=== PATIENT | female | born 1950 | race Caucasian/White ===

== ENCOUNTER 2020-06-16 08:07 | Outpatient (CLI) | payer MEDICARE, OTHER, SELFPAY ==
--- NOTE | 2020-06-16 08:30 | FL_ITS ---
NOTE: Report was unsigned for reason: Order was edited. Original Signature date and time was: 06/16/20 0937 WS: [id number] EXAM: SINGLE COLUMN UPPER GASTROINTESTINAL SERIES DATE OF EXAMINATION: 06/16/2020, 0852 hours COMPARISON: None. HISTORY: Patient is 70 years old with prior gastric sleeve procedure 2-3 years ago. Complaining of dysphasia. Pills are getting stuck. FLUOROSCOPY TIME: 2.6 minutes FINDINGS: Single column upper gastrointestinal series was performed. There is utilization of both sides of the piriform sinuses. Esophageal mucosa is smooth. Esophageal peristalsis is normal. The GE junction is normal in appearance. There is a small retrocardiac hiatal hernia demonstrated. Post surgical changes of a gastric sleeve procedure are seen. No findings of extravasation of oral contrast demonstrated. Contrast extends through the reduced size of the stomach lumen and empties into the small bowel. The stomach is otherwise is normal in appearance. There is a normal appearance to the pyloric canal, duodenal bulb, C-loop and midgut rotation. Proximal small bowel mucosa is normal in appearance. [facility] upper [facility] w air[facility] [id number] IMPRESSION: Prior gastric sleeve procedure. Small retrocardiac hiatal hernia noted. Reduced size of the stomach noted. Evaluation of the stomach otherwise normal without evidence of extravasation or definite ulcer. Contrast extends into the small paty wel without evidence of obstruction. Normal appearance to the proximal small paty wel demonstrated.
== END 2020-06-16 08:08 | disposition home or self-care (01) ==
LOC: RADWPI 08:10
PROVIDERS: Family Provider Nurse Practitioner Family; PCP Nurse Practitioner Family; Visit Provider Surgery
DX: R13.10 Dysphagia, unspecified (principal); Z98.84 Bariatric surgery status; K44.9 Diaphragmatic hernia without obstruction or gangrene
CPT/HCPCS: 74240; 74246

== ENCOUNTER 2020-06-23 10:58 | Outpatient (CLI) | payer MEDICARE, OTHER, SELFPAY ==
[2020-06-23 11:25] LABS: Basophils % 0.4 %; Eosinophils # 0.2 10^3/uL (0.0-0.8); Eosinophils % 2.1 %; Hematocrit 43.4 % (37.0-47.0); Hemoglobin 13.7 g/dL (11.5-15.3); Lymphocytes # 1.7 10^3/uL (0.8-4.8); Lymphocytes % 23.5 %; Mean Corpuscular HGB Conc 31.6 g/dL (30.0-36.0); Mean Corpuscular Hemoglobin 31.4 pg (28.0-34.0); Mean Corpuscular Volume 99.3 fL (81-99); Mean Platelet Volume 10.9 fL (7.4-10.4); Monocytes # 0.5 10^3/uL (0.2-0.9); Neutrophils # 4.76 10^3/uL (1.8-7.7); Neutrophils % 66.7 %; Nucleated Red Blood Cells % 0 %; Platelet Count 227 10^3/cmm (130-400); Red Blood Count 4.37 10^6/uL (4.1-5.3); Red Cell Distribution Width 12.6 % (12.1-15.1); White Blood Count 7.1 10^3/uL (4.0-10.0)
[2020-06-23 11:35] LABS: INR 0.86 (0.8-1.2)
[2020-06-23 12:06] LABS: Alanine Aminotransferase 24 U/L (0-33); Albumin Level 4.1 g/dL (3.5-5.2); Alkaline Phosphatase 39 IU/L (35-105); Anion Gap 14.4 (5-19); Aspartate Amino Transferase 21 U/L (0-32); Blood Urea Nitrogen 15 mg/dL (8-23); Calcium 9.1 mg/dL (8.5-10.5); Carbon Dioxide 27 mmol/L (22-29); Chloride 103 mmol/L (98-107); Chol HDL Ratio 3.68 mg/dL (0.0-4.40); Cholesterol 228 mg/dL (0-200); Ferritin 333 ng/mL (15-150); Folate Level 15.6 ng/mL (4.8-37.3); Globulin 3.2 g/dL (1.3-4.6); Glomerular Filtration Rate 99.4 mL/min (90-130); Glucose 90 mg/dL (65-115); HDL Cholesterol 62 mg/dL (60-100); Iron 117 ug/dL (37-145); LDL Cholesterol Calculated 116 mg/dL (50-129); LDL HDL Ratio 1.87 RATIO (0.00-3.22); Magnesium 2.2 mg/dL (1.7-2.3); Osmolality Calculated 286 mOsm/kg (285-295); Percent Saturation 48.7 % (20-50); Phosphorus 3.7 mg/dL (2.5-4.5); Potassium 4.4 mmol/L (3.5-5.1); Sodium 140 mmol/L (136-145); Total Bilirubin 0.3 mg/dL (0.15-1.2); Total Iron Binding Capacity 240 mcg/dl; Total Protein 7.3 g/dL (6.6-8.7); Triglycerides 249 mg/dL (0-150); Unsaturated Iron Binding 123 ug/dL (112-347); Vitamin B12 813 pg/mL (232-1245)
[2020-06-23 12:12] LABS: Calcium 9.5 mg/dL (8.5-10.5); Parathyroid Hormone 51.4 pg/mL (15-65)
[2020-06-23 14:13] LABS: Estmated Average Glucose 123; Hemoglobin A1C 5.9 % (4.0-6.0)
== END 2020-06-23 10:59 | disposition home or self-care (01) ==
LOC: LAB 11:04
PROVIDERS: PCP Nurse Practitioner Family; Visit Provider Surgery
DX: D64.9 Anemia, unspecified (principal); E66.9 Obesity, unspecified; E11.9 Type 2 diabetes mellitus without complications
CPT/HCPCS: 80053; 80061; 82248; 82310; 82607; 82728; 82746; 83036; 83540; 83550; 83735; 83970; 84100; 84443; 85025; 85610

== ENCOUNTER 2020-06-30 15:40 | Outpatient (CLI) | payer MEDICARE, OTHER, SELFPAY | END 2020-06-30 15:41 | disposition home or self-care (01) | LOC: SPT 15:41 | PROVIDERS: PCP Nurse Practitioner Family; Visit Provider Podiatrist Foot & Ankle Surgery | DX: Z46.89 Encounter for fitting and adjustment of other specified devices (principal); M72.2 Plantar fascial fibromatosis | CPT/HCPCS: 97760; L3030 ==

== ENCOUNTER → 2020-07-15 07:51 | Outpatient (BNVA) | payer MEDICARE, OTHER, SELFPAY | PROVIDERS: PCP Nurse Practitioner Family; Visit Provider Surgery | DX: Z20.828 Contact with and (suspected) exposure to other viral communicable diseases (principal) | CPT/HCPCS: 87635 ==

== ENCOUNTER 2020-07-20 07:19 | Day surgery (SDC) | payer MEDICARE, OTHER, SELFPAY ==
[2020-07-18 12:45] VITALS: BMI 34.5
[2020-07-20] MEDS: sodium chloride 0.9% 1,000 ML 30 ML IV ×2 (07:45)
[2020-07-20 07:46] VITALS: BP 125/72; PULSE 58; RESP 18; TEMP 36.1; O2SAT 98
--- NOTE | 2020-07-20 08:04 | ANES.PREANE2 ---
Pre-Anesthetic Assessment Pre-Anesthetic Assessment: Height/Weight: Height 1.6 m Weight 88.451 kg Temp Pulse Resp BP Pulse Ox 97 F L 58 L 18 125/72 98 07/20/20 07:46 07/20/20 07:46 07/20/20 07:46 07/20/20 07:46 07/20/20 07:46 Preop Diagnosis: Difficulty in swallowing and screening colonoscopy Proposed Procedure: Operation Date: 07/20/20 09:00 Proposed Procedures p EGD/colon 23449 47225 R13.10 Z12.11(Not Applicable) - Mookie Rollins MD s Colonoscopy(Not Applicable) - Mookie Rollins MD Familial anesthetic complications: Vagal response/ low bp after anethesia a couple of times Was Beta Santosh taken within 24 hours: Yes Last intake: Intake Last Liquid Date 07/19/20 Last Liquid Time 23:00 Last Solid Date 07/19/20 Last Solid Time 23:00 Social: Social History: No alcohol and No tobacco Exam: Pre-Anes Outpt Exam: alert, oriented x 3, clear to auscultation bilaterally and regular rate & rhythm Airway: Cervical ROM: WNL MP: 3 Dentition: Full Pulmonary: Pulmonary: Sleep apnea CV/HEM: CV/HEM: HTN GI: GI: GERD Neuropsych: Neuropsych: Depression Anesthetic Plan: ASA status: 2 Anesthesia: MAC Risk of > 500 ml blood loss (7ml/kg in children): No PFSH Anesthesia PFSH: Medical History Anxiety Bilateral foot pain Hiatal hernia Hypercholesteremia Hypertension Surgical History H/O carpal tunnel repair bilateral H/O colonoscopy 10-12 yrs H/O esophagogastroduodenoscopy 5 years ago with gastric sleeve H/O: hysterectomy History of tonsillectomy and adenoidectomy Hx of cholecystectomy S/P laparoscopic sleeve gastrectomy Family History Mother Cancer skin cancer Other Bipolar disorder CAD (coronary artery disease) Family history of thyroid problem Hypertension Osteoarthritis Denies family history of Anesthesia complication Bleeding disorder Social History Smoking and tobacco status: never smoked Alcohol intake: never Lives independently: Yes Marital status: Single Current occupational status: employed History of recent travel: Yes ([place], [place]) Out of state: Yes Data Anesthesia Cardiac Studies: No Data to Display
--- NOTE | 2020-07-20 09:13 | W.PM.OPSUD ---
Surgery/Procedure H&P Update DATE OF PROCEDURE: July 20, 2020 DATE H&P PERFORMED: 06/30/20 H&P UPDATE INFORMATION: I have reviewed H&P completed within last 30 days, I have examined patient prior to procedure and No changes to prior documentation PREOP DIAGNOSIS: Difficulty in swallowing and screening colonoscopy PRIMARY INDICATION FOR PROCEDURE: The same PLANNED PROCEDURE: Operation Date: 07/20/20 09:00 Proposed Procedures p EGD/colon 57719 72406 R13.10 Z12.11(Not Applicable) - Mookie Rollins MD s Colonoscopy(Not Applicable) - Mookie Rollins MD
[2020-07-20 10:09] VITALS: BP 107/61; PULSE 57; RESP 18; TEMP 36.1; O2SAT 96
--- NOTE | 2020-07-20 10:12 | ANE.PACU2 ---
Inpatient post-anesthesia follow up: Airway intact: Yes Vital signs: Temperature 97 F Pulse Rate 58 Respiratory Rate 18 Blood Pressure 125/72 Pulse Oximetry 98 Oxygen Delivery Me thod Room Air Oxygen Flow Rate Fraction of Inspir ed Oxygen Hydration adequate: Yes Nausea and vomiting: No Pain level: 1 Mental status: Baseline
[2020-07-20 10:24] VITALS: BP 115/65; PULSE 58; RESP 18; O2SAT 98
[2020-07-21 06:06] LABS: H. Pylori / CLO Test Negative
== END 2020-07-20 10:35 | disposition home or self-care (01) ==
PROVIDERS: PCP Nurse Practitioner Family; Visit Provider Surgery
PROC: 0DJ08ZZ Inspection of Upper Intestinal Tract, Via Natural or Artificial Opening Endoscopic (ICD-10-PCS; CPT 43235; principal; 2020-07-20 09:00)
PROC: 0DJD8ZZ Inspection of Lower Intestinal Tract, Via Natural or Artificial Opening Endoscopic (ICD-10-PCS; CPT 45378; 2020-07-20 09:00)
DX: Z12.11 Encounter for screening for malignant neoplasm of colon (principal); R13.10 Dysphagia, unspecified; Z98.84 Bariatric surgery status; K44.9 Diaphragmatic hernia without obstruction or gangrene; K29.70 Gastritis, unspecified, without bleeding; I10 Essential (primary) hypertension; G47.30 Sleep apnea, unspecified; K21.9 Gastro-esophageal reflux disease without esophagitis; F32.9 Major depressive disorder, single episode, unspecified; E78.00 Pure hypercholesterolemia, unspecified
CPT/HCPCS: 12345; 43239; 45378; 87077; G0121; J2704; J7030

== ENCOUNTER → 2020-08-15 14:27 | Outpatient (BNVA) | payer MEDICARE, OTHER, SELFPAY | PROVIDERS: PCP Nurse Practitioner Family; Visit Provider Podiatrist Foot & Ankle Surgery | DX: M72.2 Plantar fascial fibromatosis (principal) | CPT/HCPCS: 73630 ==

== ENCOUNTER 2020-09-21 13:26 | Outpatient (CLI) | payer MEDICARE, OTHER, SELFPAY ==
--- NOTE | 2020-09-21 13:30 | MM_ITS ---
WS: [id number] SCREENING DIGITAL MAMMOGRAM WITH CAD HISTORY: SCREENING COMPARISON: 09/18/2019 and 10/02/2016 Bilateral CC and MLO views submitted. Computer aided detection analyzed. Breast composition: There are scattered areas of fibroglandular density. No suspicious masses, microc alcifications or architectural distortion. MM/[place] [id number] IMPRESSION: BI-RADS: 1-Negative FOLLOW UP: 1 Year Follow-up
== END 2020-09-21 13:27 | disposition home or self-care (01) ==
LOC: RADSHAW 13:29
PROVIDERS: PCP Nurse Practitioner Family; Visit Provider Nurse Practitioner Family
DX: Z12.31 Encounter for screening mammogram for malignant neoplasm of breast (principal)
CPT/HCPCS: 77067

== ENCOUNTER 2020-12-04 17:26 | Emergency (ER) | payer MEDICARE, OTHER, SELFPAY ==
[2020-12-04 17:37] VITALS: BP 174/85; PULSE 72; RESP 16; TEMP 36.2; O2SAT 97; BMI 34.3
--- NOTE | 2020-12-04 17:38 | XRR_ITS ---
PROCEDURE INFORMATION: Exam: XR Right Hand Exam date and time: 12/04/2020 5:39 PM Age: 70 years old Clinical indication: Injury or trauma; Other: Dog bite; Hand; Right; Injury details: 3rd finger and palm by thumb TECHNIQUE: Imaging protocol: XR Right hand. Views: 3 or more views. COMPARISON: No relevant prior studies available. FINDINGS: Bones/joints: Negative for acute bony abnormality. Soft tissues: Negative for soft tissue foreign body XR/XR hand RT min 3V* [id number] IMPRESSION: No acute findings.
[2020-12-04 17:52] VITALS: BP 174/85; PULSE 72; RESP 16; O2SAT 97
[2020-12-04] MEDS: lidocaine 1% INJ 20 mL INJECTION (17:58)
[2020-12-04] MEDS: amoxicillin-clav 875-125 mg Tablet 1 TAB PO (17:58)
--- NOTE | 2020-12-04 18:06 | W.ED.EXTPRO ---
HPI - Extremity Problem General: Chief complaint: Extremity Injury, Upper Stated complaint: DOG BITE/KNOWN DOG Time Seen by Provider: 12/04/20 17:37 Source: patient Mode of arrival: ambulatory Limitations: no limitations History of Present Illness: HPI Narrative: 70-year-old female patient presents to the emergency department with right hand injury. She reports was trying to separate her Siberian Huskies, when she received dog bite to the right hand. Bite is located to the right thenar, right hand dominant. Canine vaccines up-to-date including rabies. She is not sure if her tetanus shot is up-to-date. She reports full movement of her right thumb. Location: right and upper extremity Quality: aching Radiation: none Relieving factors: immobilization and rest Exacerbating factors: range of motion Associated symptoms: Deny chest pain, fever(s) or rash Review of Systems General: Reports: 10 or more systems reviewed and unremarkable except in HPI and below Const: Denies: fever(s), chills or diaphoresis Eyes: Denies: blurry vision or eye redness ENMT: Denies: throat pain, dental pain or disequilibrium Card: Denies: chest pain, palpitations or irregular heart rhythm Resp: Denies: dyspnea, productive cough, non-productive cough or wheezing GI: Denies: abdominal pain, nausea or vomiting : Denies: difficulty voiding or dysuria Musc: Reports: extremity pain; Denies: neck pain, back pain or joint pain Skin/Breast: Reports: erythema, skin tenderness and other (laceration); Denies: rash or pruritus Neuro: Denies: headache(s), weakness in extremities or behavioral changes Khris/Lymph: Denies: easy bruising [facility] PFSH: Medical History (Updated 12/04/20 @ 18:32 by CHELO Benedict) Anxiety Bilateral foot pain Hiatal hernia Hypercholesteremia Hypertension Surgical History H/O carpal tunnel repair bilateral H/O colonoscopy 10-12 yrs H/O esophagogastroduodenoscopy 5 years ago with gastric sleeve H/O: hysterectomy History of tonsillectomy and adenoidectomy Hx of cholecystectomy S/P laparoscopic sleeve gastrectomy Family History Mother Cancer skin cancer Other Bipolar disorder CAD (coronary artery disease) Family history of thyroid problem Hypertension Osteoarthritis Denies family history of Anesthesia complication Bleeding disorder Social History Smoking and tobacco status: never smoked Alcohol intake: never Lives independently: Yes Marital status: Single Current occupational status: employed History of recent travel: Yes ([place], [place]) Out of state: Yes Physical Exam Const: COMMON NORMALS: no acute distress, patient oriented x3, healthy appearing and alert GENERAL APPEARANCE: cooperative, comfortable and well hydrated HENMT: COMMON NORMALS: normocephalic, Normal external nose present and moist oral mucous membranes HEAD & SCALP: normocephalic NOSE: Normal external nose present Eye: COMMON NORMALS: Equal, round and reactive pupils present and EOMs intact bilaterally GENERAL EYE: appearance normal, both eyes and all related structures PUPIL: Yes Equal, round and reactive pupils present Neck/C-Spine: COMMON NORMALS: full ROM and no lymphadenopathy GENERAL: Yes normal visual inspection and Yes trachea midline CERVICAL SPINE: Yes cervical ROM normal Lymph: LYMPHATIC: no lymphadenopathy noted Chest: COMMONS NORMALS: normal inspection of the chest Resp: COMMON NORMALS: normal respiratory effort and clear to auscultation bilaterally AUSCULTATION: clear to auscultation bilaterally Cardio: COMMON NORMALS: regular rhythm, S1 normal heart sound present and S2 normal heart sound present RHYTHM: regular rhythm HEART SOUNDS: S1 normal heart sound present and S2 normal heart sound present GI: COMMON NORMALS: Soft to palpation and non-tender INSPECTION: Yes normal to inspection PALPATION: Yes Soft to palpation : COMMON NORMALS: Yes no CVA tenderness BLADDER/KIDNEY EXAM: Yes no CVA tenderness Back/Pelvis: COMMON NORMALS: no CVA tenderness and thoracic and lumbar spine normal to inspection Extremity: COMMON NORMALS: normal to inspection, full ROM, capillary refill normal and no pedal edema GENERAL: Yes normal exam except as noted RIGHT UPPER EXTREMITY: Yes hand & digits (rt thenar with 4 cm flap laceration, deep, bleeding controlled) Right hand and digits: Yes palpation (tenderness of the rt thenar), Yes ROM exam (full ROM of the rt thumb), Yes neurovascular exam (distally intact) and Yes tendon exam (no deficits) Neuro: COMMON NORMALS: patient oriented x3 and no focal motor deficits SENSORIUM/ORIENTATION: Yes alert Psych: COMMON NORMALS: mental status grossly normal, Normal thought process present and cooperative ACTIVITY/MOTOR BEHAVIOR: Yes appropriate eye contact THOUGHT PROCESS: Normal thought process present Skin: COMMON NORMALS: no rashes or lesions noted and turgor normal GENERAL SKIN EXAM: no rashes or lesions noted and turgor normal Procedures Laceration Laceration 1: Site: upper extremity (rt thumb) Side (If applicable): right Size (cm): 4 Description: flap Depth: involves muscle layer Local Anesthetic: lidocaine 1% Amount of anesthesia used (mL): 6 Pre-repair: wound explored, irrigated extensively, deep structures intact and extensive debridement Skin layer closed with: nylon Size (cm): 4-0 (loosely applied, wound remains slightly open) Number of sutures: 2 Technique: simple, interrupted Course ED course: 70-year-old female patient presents to the emergency department with dog bite to the right thenar area of her hand. Rabies vaccination of the canines up-to-date, she is unsure of her tetanus shot and she did receive 1 here in the ED today. Deep flap laceration appreciated, flap is open, 2 loose sutures were applied after extensive debridement/irrigation of the wound. Plan to refer to wound care secondary to risk for infection is high. Placed on Augmentin, she did receive her first dose here in the ED. Vital Signs: Vital signs: Vital Signs Temperature 97.2 F L 12/04/20 17:37 Pulse Rate 72 12/04/20 17:52 Respiratory Rate 16 12/04/20 17:52 Blood Pressure 174/85 12/04/20 17:52 Pulse Oximetry 97 12/04/20 17:52 MDM - Extremity (Nontraumatic) Imaging Data^: Xray Ortho: Radiologist's impression: [facility] [address] [place] [address] XRay Report Signed Patient: Gabrielle Austin #: [id number] : 2Acct#:[id number] Age/Sex: 70 / FADM Date: 12/04/20 Loc: ERRoom/Bed: Attending Dr: Ordering Provider/Ordering MD: Geovanna Agee Date of Service: 12/04/20 Procedure(s): XR hand RT min 3V* [id number] Accession Number(s): [id number] Report Number: [id number] PROCEDURE INFORMATION: Exam: XR Right Hand Exam date and time: 12/04/2020 5:39 PM Age: 70 years old Clinical indication: Injury or trauma; Other: Dog bite; Hand; Right; Injury details: 3rd finger and palm by thumb TECHNIQUE: Imaging protocol: XR Right hand. Views: 3 or more views. COMPARISON: No relevant prior studies available. FINDINGS: Bones/joints: Negative for acute bony abnormality. Soft tissues: Negative for soft tissue foreign body XR/XR hand RT min 3V* [id number] IMPRESSION: No acute findings. Dictated By:Mateo Ceron Signed By:Tessa Ceron Date/Time:12/04/201804 DD/ 02 Discharge Plan Discharge Patient Disposition: Home Clinical Impression: Dog bite of hand Qualifiers: Encounter type: initial encounter Laterality: right Qualified Code(s): S61.451A - Open bite of right hand, initial encounter Laceration of hand Qualifiers: Encounter type: initial encounter Foreign body presence: without foreign body Laterality: right Qualified Code(s): S61.411A - Laceration without foreign body of right hand, initial encounter Condition: Stable Prescriptions: New Augmentin 875-125 mg tablet 1 tab PO BID Qty: 20 RF: 0 No Action losartan 50 mg tablet 50 mg PO DAILY RF: 0 pantoprazole 20 mg tablet,delayed release (DR/EC) 20 mg PO DAILY RF: 0 cholecalciferol (vitamin D3) 25 mcg (1,000 unit) capsule 25 mcg PO DAILY RF: 0 multivitamin with minerals [Hair,Skin and Nails] Tablet 1 tab PO DAILY RF: 0 alprazolam 0.25 mg tablet 0.25 mg PO .bedtime PRN (Reason: sleep) RF: 0 metoprolol tartrate 50 mg tablet 50 mg PO DAILY RF: 0 pravastatin 20 mg tablet 30 mg PO DAILY RF: 0 bupropion HCl 100 mg tablet sustained-release 12 hr 50 mg PO DAILY RF: 0 diphenhydramine HCl [Allergy (diphenhydramine)] 25 mg capsule 25 mg PO .bedtime PRN (Reason: Allergy Symptoms) RF: 0 hydrochlorothiazide 25 mg tablet 12.5 mg PO DAILY RF: 0 (DME) Sole Supports See Rx Instructions .ROUTE .MEDSUPPLY Qty: 1 RF: 0 sertraline 50 mg tablet 50 mg PO DAILY RF: 0 Discharge Orders: Discharge ED (Routine); Ordered 12/04/20 Ordered By: Geovanna Agee Referrals: Gris Bender, ROSY [Primary Care Provider] - Discharge Diet: Usual diet Discharge Activity: Limit activity as instructed Patient Instructions: Diphtheria/Acellular Pertussis/Tetanus Booster Vaccine (Tdap) (Injection), Animal Bite (ED), Suture Care (ED), Laceration (ED) Activity Restrictions/Additional Instructions: Case management will call you tomorrow with appointment with wound care, will recommend wound care follow-up Saturday. Take Augmentin until all gone, even if feeling better Return to the emergency department if you develop redness swelling or red streaking of the wound of the arm. May take Tylenol as needed for pain. Limit use of the right hand until wound has healed. Coding Level of Care Code ED Halftone Operator for Sally Fwjarrod Exam Comprehensive
[2020-12-04] MEDS: tetanus-dipt-pertussis 0.5 mL SDV IM (18:45)
--- NOTE | 2020-12-05 11:12 | DCPLANNER ---
manager of selection and assessment had message to schedule a follow up appointment for patient with Wound Care. manager of selection and assessment called Wound Care clinic, spoke with Alma, gave clinic patients information. A follow up appointment was scheduled for Sunday, December 06, 2020 at 8:[address] Caldera. manager of selection and assessment called patient to give patient appointment information. manager of selection and assessment called phone number [phone], unable to speak with patient at this time, a voicemail was left for patient to return wrapper caser phone call.
--- NOTE | 2020-12-29 07:54 | DCPLANNER ---
Patient had a follow up appointment scheduled for 12.06.[address] [facility]ound Care with Dr[address] Dr. Caldera - patient did attend appointment.
== END 2020-12-04 19:01 | disposition home or self-care (01) ==
PROVIDERS: Emergency Provider Nurse Practitioner Family; PCP Nurse Practitioner Family
DX: S61.451A Open bite of right hand, initial encounter (principal); W54.0XXA Bitten by dog, initial encounter; I10 Essential (primary) hypertension; Z23 Encounter for immunization
CPT/HCPCS: 12002; 12345; 73130; 90471; 90715; 99281; 99283

== ENCOUNTER 2020-12-06 08:12 | Outpatient (CLI) | payer MEDICARE, OTHER, SELFPAY | END 2020-12-06 08:13 | disposition home or self-care (01) | LOC: WOUND 08:13 | PROVIDERS: PCP Nurse Practitioner Family; Visit Provider Thoracic Surgery (Cardiothoracic Vascular Surgery) | DX: S61.451A Open bite of right hand, initial encounter (principal); W54.0XXA Bitten by dog, initial encounter | CPT/HCPCS: G0463 ==

== ENCOUNTER 2020-12-20 09:05 | Outpatient (CLI) | payer MEDICARE, OTHER, SELFPAY | END 2020-12-20 09:06 | disposition home or self-care (01) | LOC: WOUND 09:06 | PROVIDERS: PCP Nurse Practitioner Family; Visit Provider Thoracic Surgery (Cardiothoracic Vascular Surgery) | DX: Z09 Encounter for follow-up examination after completed treatment for conditions other than malignant neoplasm (principal) | CPT/HCPCS: 99212 ==

== ENCOUNTER 2021-02-28 10:35 | Outpatient (CLI) | payer MEDICARE, OTHER, SELFPAY ==
--- NOTE | 2021-02-28 10:53 | CT_ITS ---
WS: [id number] CT CHEST WITH INTRAVENOUS CONTRAST HISTORY: LUNG MASS TECHNIQUE: Contiguous 5 mm axial imaging performed on the thorax. Coronal and sagittal reformats are submitted. All CT scans at [facility] use at least one of these dose optimization techniq ues: automated exposure control; mA and/or kV adjustment per patient size (includes targeted exams wh ere dose is matched to clinical indication); or iterative reconstruction. CONTRAST: Omnipaque 300; 95 mL IV. DLP: 919.38 mGycm COMPARISON: 03/06/2019 Lungs and central airway: Well aerated lungs. There are no new or enlarging nodules. There are a few peripheral micronodules which are less than 3 mm and no interval change since 03/06/2019. Pleura: Normal. No pleural effusion. Heart and pericardium: Mild LEFT atrial enlargement. Otherwise negative. 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 Stable in size since 08/22/2017. There are additional small mediastinal and hilar lymph nodes which are sub centimeter. Vessels: Normal size aortic and pulmonary artery. No coronary artery calcifications. Chest wall and lower neck: No soft tissue masses. Upper abdomen: Prior cholecystectomy. No adrenal mass. Visualized liver is normal. Moderate size hiat al hernia. Postsurgical changes are noted at the GE junction from prior bariatric surgery. Osseous structures: Mild increase in thoracic kyphosis. No rib fractures are identified. CT/CT chest w con* [id number] IMPRESSION: 1. No right-sided rib fractures or pneumothorax. 2. 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 Stable since 017. 3. No pulmonary mass. 4. Prior cholecystectomy.
[2021-02-28 11:17] LABS: Blood Urea Nitrogen 13 mg/dL (8-23); Glomerular Filtration Rate 99.1 mL/min (90-130)
[2021-02-28] MEDS: iohexol 300 mg/mL 100 mL Btl IV (11:29)
== END 2021-02-28 10:36 | disposition home or self-care (01) ==
PROVIDERS: PCP Nurse Practitioner Family; Visit Provider Thoracic Surgery (Cardiothoracic Vascular Surgery)
DX: R91.8 Other nonspecific abnormal finding of lung field (principal); Z90.49 Acquired absence of other specified parts of digestive tract
CPT/HCPCS: 71260; 82565; 84520; Q9967

== ENCOUNTER 2021-03-20 14:39 | Outpatient (CLI) | payer MEDICARE, OTHER, SELFPAY ==
--- NOTE | 2021-03-20 14:48 | XR_ITS ---
WS: [id number] Exam: XR ribs BI 3V* [id number] Date/Time of Exam: 03/20/2021 3:10 PM Reason For Exam: LEFT SIDED PAIN AFTER FALLING No acute rib fracture noted. The lungs are clear and fully expanded. Normal cardiomediastinal structu res. No pleural or pulmonary reactive changes. XR/XR ribs BI 3V* [id number] IMPRESSION: 1. No acute rib fracture or pneumothorax noted. No acute cardiopulmonary findin g.
== END 2021-03-20 14:40 | disposition home or self-care (01) ==
LOC: RAD 14:43
PROVIDERS: PCP Nurse Practitioner Family; Visit Provider Nurse Practitioner Family
DX: R07.81 Pleurodynia (principal)
CPT/HCPCS: 71110

== ENCOUNTER 2022-04-18 13:52 | Outpatient (CLI) | payer MEDICARE, OTHER, SELFPAY ==
--- NOTE | 2022-04-18 14:08 | MM_ITS ---
WS: [id number] BILATERAL 3D TOMOSYNTHESIS DIGITAL SCREENING MAMMOGRAPHY WITH CAD CLINICAL INFORMATION: SCREEN HISTORY: Screening mammogram. No current complaints. COMPARISON: September 21, 2020 TECHNIQUE: Bilateral CC and MLO views. FINDINGS: Scattered fibroglandular densities bilaterally. Tiny incidental punctate and lucent centered calcific ations. No suspicious focal mass, asymmetry, calcifications, or architectural distortion. No evidence of malignancy. MM/[place] [id number] IMPRESSION: BI-RADS: 2-Benign FOLLOW UP: 1 Year Follow-up Recommend return to annual screening mammography.
== END 2022-04-18 13:53 | disposition home or self-care (01) ==
PROVIDERS: PCP Family Medicine; Visit Provider Nurse Practitioner Family
DX: Z12.31 Encounter for screening mammogram for malignant neoplasm of breast (principal); R92.1 Mammographic calcification found on diagnostic imaging of breast
CPT/HCPCS: 77063; 77067

== ENCOUNTER 2022-05-15 13:29 | Outpatient (CLI) | payer MEDICARE, OTHER, SELFPAY ==
--- NOTE | 2022-05-15 13:39 | XR_ITS ---
WS: [id number] SCREENING DEXA SCAN [facility] CLINICAL INFORMATION: AGE RELATED OSTEOPOROSIS COMPARISON: 2013 FINDINGS: The L1-L4 bone mineral density measures 0.882 g/cm2. This corresponds to a T score score of -2.5 and Z score of -1.7. Left femoral neck bone mineral density measures 0.799 g/cm2. This corresponds to a T score of -1.7 an d Z score of -0.8. Right femoral neck bone mineral density measures 0.814 g/cm2. This corresponds to a T score -1.5of an d Z score of -0.7. Mean femoral neck bone mineral density measures 0.806 g/cm2. This corresponds to a T score of -1.6 an d Z score of -0.8. XR/XR DEXA axial skeleton* [id number] IMPRESSION: Osteopenia lumbar spine at the upper end of the range. Osteopenia femoral necks . Patient's FRAX calculated 10 year probability for major osteoporotic fracture i s 19.8 % and osteoporotic hip fracture is 6.0%.
== END 2022-05-15 13:30 | disposition home or self-care (01) ==
PROVIDERS: PCP Family Medicine; Visit Provider Nurse Practitioner Family
DX: M81.0 Age-related osteoporosis without current pathological fracture (principal)
CPT/HCPCS: 77080

== ENCOUNTER 2022-05-26 08:05 | Outpatient (CLI) | payer MEDICARE, OTHER, SELFPAY ==
[2022-05-26 08:46] LABS: Basophils % 0.2 %; Eosinophils # 0.1 10^3/uL (0.0-0.8); Eosinophils % 1.8 %; Hematocrit 39.4 % (37.0-47.0); Hemoglobin 13.6 g/dL (11.5-15.3); Lymphocytes # 2.3 10^3/uL (0.8-4.8); Lymphocytes % 35.3 %; Mean Corpuscular HGB Conc 34.5 g/dL (30.0-36.0); Mean Corpuscular Volume 92.7 fl (81-99); Mean Platelet Volume 10.3 fL (7.4-10.4); Monocytes # 0.4 10^3/uL (0.2-0.9); Monocytes % 6.7 %; Neutrophils # 3.63 10^3/uL (1.8-7.7); Neutrophils % 55.7 %; Nucleated Red Blood Cells % 0 %; Platelet Count 277 10^3/cmm (130-400); Red Blood Count 4.25 10^6/uL (4.1-5.3); Red Cell Distribution Width 12.7 % (12.1-15.1); White Blood Count 6.5 10^3/uL (4.0-10.0)
[2022-05-26 09:08] LABS: Alanine Aminotransferase 25 U/L (0-33); Alkaline Phosphatase 48 IU/L (35-105); Anion Gap 14.2 (5-19); Aspartate Amino Transferase 28 U/L (0-32); Blood Urea Nitrogen 18 mg/dL (8-23); Calcium 9.1 mg/dL (8.5-10.5); Carbon Dioxide 25 mmol/L (22-29); Chloride 104 mmol/L (98-107); Chol HDL Ratio 5.24 mg/dL (0.0-4.40); Cholesterol 262 mg/dL (0-200); Globulin 2.8 g/dL (1.3-4.6); Glucose 96 mg/dL (65-115); HDL Cholesterol 50 mg/dL (60-100); LDL Cholesterol Calculated 172 mg/dL (50-129); LDL HDL Ratio 3.44 RATIO (0.00-3.22); Osmolality Calculated 290 mOsm/kg (285-295); Potassium 4.2 mmol/L (3.5-5.1); Sodium 139 mmol/L (136-145); Total Bilirubin 0.4 mg/dL (0.15-1.2); Total Protein 6.8 g/dL (6.6-8.7); Triglycerides 202 mg/dL (0-150)
[2022-05-26 10:08] LABS: Creatinine Urine, Random 23 mg/dL (28-217); Microalbumin Random Urine 1 ug/dL (0-20)
[2022-05-26 10:09] LABS: Microalbum Creatinine Ratio Ur 43 mg/dL (0-20)
== END 2022-05-26 08:06 | disposition home or self-care (01) ==
LOC: LAB 08:08
PROVIDERS: PCP Family Medicine; Visit Provider Family Medicine
DX: Z13.6 Encounter for screening for cardiovascular disorders (principal); E78.5 Hyperlipidemia, unspecified; I10 Essential (primary) hypertension
CPT/HCPCS: 36415; 80053; 80061; 82044; 85025

== ENCOUNTER → 2022-08-17 10:29 | Outpatient (BNVA) | payer MEDICARE, OTHER, SELFPAY | PROVIDERS: PCP Family Medicine; Visit Provider Family Medicine | DX: R13.10 Dysphagia, unspecified (principal); K29.70 Gastritis, unspecified, without bleeding; M85.88 Other specified disorders of bone density and structure, other site; Z91.89 Other specified personal risk factors, not elsewhere classified; F41.9 Anxiety disorder, unspecified; F32.A Depression, unspecified; E78.5 Hyperlipidemia, unspecified; I10 Essential (primary) hypertension; R32 Unspecified urinary incontinence; J98.59 Other diseases of mediastinum, not elsewhere classified; Z76.89 Persons encountering health services in other specified circumstances; Z00.00 Encounter for general adult medical examination without abnormal findings; Z23 Encounter for immunization; Z98.84 Bariatric surgery status | CPT/HCPCS: 80053; 82306; 82607; 82728; 84443; 85025 ==

== ENCOUNTER → 2022-09-05 08:15 | Outpatient (BNVA) | payer MEDICARE, OTHER, SELFPAY | PROVIDERS: PCP Family Medicine; Visit Provider Family Medicine | DX: E78.5 Hyperlipidemia, unspecified (principal); Z98.84 Bariatric surgery status; I10 Essential (primary) hypertension | CPT/HCPCS: 80061 ==

== ENCOUNTER → 2022-10-05 08:39 | Day surgery (SDC) | payer MEDICARE, OTHER, SELFPAY ==
[2022-10-05 09:32] VITALS: BP 137/62; PULSE 77; RESP 18; TEMP 36.8; O2SAT 96
[2022-10-05 09:33] LABS: Blood Urea Nitrogen 16 mg/dL (8-23); Calcium 8.9 mg/dL (8.5-10.5); Glomerular Filtration Rate 98.8 mL/min (90-130)
--- NOTE | 2022-10-05 09:45 | PC.NURSE ---
Pt to GI infusions for Reclast infusion. Calcium level 8.6. Creatinine clearance noted at 130 mL/min. Reclast infused as ordered. Pt tolerated well.
== END ==
PROVIDERS: PCP Family Medicine; Visit Provider Family Medicine
DX: M85.88 Other specified disorders of bone density and structure, other site (principal)
CPT/HCPCS: 36415; 82310; 82565; 84520; 96365; J3489

== ENCOUNTER 2022-11-18 10:03 | Emergency (ER) | payer MEDICARE, SELFPAY ==
[2022-11-18 10:06] VITALS: BP 129/74; PULSE 70; RESP 18; TEMP 36.6; O2SAT 96
--- NOTE | 2022-11-18 10:51 | W.ED.EAR ---
HPI - Ear Problem General: Chief complaint: Ear Stated complaint: ear pain Time Seen by Provider: 11/18/22 10:15 Source: patient Mode of arrival: ambulatory Limitations: no limitations History of Present Illness: 72-year-old female presents to the ER today for left ear pain for the last 24 hours. Patient reports she first noticed it yesterday. Patient reports it is intermittent sharp and shooting. Patient reports it starts below the left ear and goes into her ear. She denies any ear discharge. Denies any history of an ear infection. Denies any recent history of an upper respiratory infection. Patient does have a history of high cholesterol however reports it is well managed. Patient denies any recent illnesses in general. Patient reports the pain is worse with movement in certain directions. She has tried warm, moist heat and menthol. She is also been taking Tylenol at home as she cannot take NSAIDs due to stomach surgery. Review of Systems General: Reports: 10 or more systems reviewed and unremarkable except in HPI and below PFSH ED PFSH: Medical History Anxiety and depression Benign essential HTN Bilateral foot pain Chronic GERD Dyslipidemia Hiatal hernia High risk for hip fracture Mediastinal mass Osteopenia Urinary incontinence Surgical History History of bilateral carpal tunnel release History of cholecystectomy History of hysterectomy History of sleeve gastrectomy History of tonsillectomy and adenoidectomy Status post implantation of urinary electronic stimulator device Family History Mother Cancer skin cancer Other Bipolar disorder CAD (coronary artery disease) Family history of thyroid problem Hypertension Osteoarthritis Denies family history of Anesthesia complication Bleeding disorder Social History Smoking and tobacco status: never smoked Alcohol intake: never Lives independently: Yes Marital status: / Current occupational status: retired History of recent travel: Yes ([place], [place]) Out of state: Yes Physical Exam Const: COMMON NORMALS: average body habitus, patient oriented x3, no limitations, healthy appearing, alert and well nourished; apparent distress (uncomfortable when pain happens) HENMT: COMMON NORMALS: normocephalic, atraumatic, hearing grossly normal bilaterally, external ears normal, TM's normal bilaterally, Normal external nose present, Normal nasal mucous membranes and turbinates present and moist oral mucous membranes HEAD & SCALP: normocephalic and atraumatic NOSE: Normal external nose present and Normal nasal mucous membranes and turbinates present EXTERNAL EAR: Yes external ears normal TYMPANIC MEMBRANE: TM's normal bilaterally OTHER: Pain is intermittent while on exam. It is worsened with movement of the neck. Eye: COMMON NORMALS: Equal, round and reactive pupils present and conjunctivae normal CONJUNCTIVA: Yes conjunctivae normal PUPIL: Yes Equal, round and reactive pupils present Neck/C-Spine: COMMON NORMALS: full ROM, no lymphadenopathy and supple OTHER: Patient does have increased pain/stiffness with rotation and flexion of the neck. This pain is located on the left side. The sharp shooting pain however is not worsened by movement. Lymph: LYMPHATIC: no lymphadenopathy noted Resp: COMMON NORMALS: normal respiratory effort, No retractions and clear to auscultation bilaterally AUSCULTATION: clear to auscultation bilaterally Cardio: COMMON NORMALS: regular rate, regular rhythm and No murmurs present (Cardio) RATE: regular rate RHYTHM: regular rhythm Extremity: COMMON NORMALS: normal to inspection and full ROM Neuro: COMMON NORMALS: patient oriented x3 SENSORIUM/ORIENTATION: Yes alert Psych: COMMON NORMALS: mental status grossly normal, Normal thought process present and cooperative THOUGHT PROCESS: Normal thought process present Skin: COMMON NORMALS: no rashes or lesions noted and no wounds GENERAL SKIN EXAM: no rashes or lesions noted Course ED course: Patient presents to the ER for left ear pain for the last 24 hours. Patient's pain is intermittent when it is sharp however always there is some discomfort present since last night. Patient reports the pain is slightly worse with movement however that sharp pain just comes and goes without any given reason. Physical exam performed in ER today. Vital Signs: Vital signs: Vital Signs Temperature 97.9 F 11/18/22 10:06 Pulse Rate 70 11/18/22 10:06 Respiratory Rate 18 11/18/22 10:06 Blood Pressure 129/74 11/18/22 10:06 Pulse Oximetry 96 11/18/22 10:06 Oxygen Delivery Me thod 11/18/22 10:06 MDM - Ear Medical Decision Making Patient's ear exam is unremarkable. TM is visualized and clear with no fluid noted. Canals clear and nontender. Tragus nontender. Patient's pain is intermittent and noted in the ER to be almost nervelike in origin. Patient does have tenderness over the left sternocleidomastoid and has some stiffness and discomfort with movement. This may be more of a pinched nerve due to some inflammation versus muscle spasms. Patient will be given a Toradol injection in ER today as patient cannot take oral NSAIDs due to stomach surgery. I will send home patient with Robaxin. Recommended continuing the warm moist heat. Also okay to do topical muscle rub. If pain is not improving in 24 to 48 hours, follow-up with PCP. Return to the ER with any new or worsening symptoms. Patient verbalized understanding and was in agreement with this treatment plan. Critical Care Time Critical Care Time: Critical Care Time: No Discharge Plan Discharge Patient Disposition: Home Clinical Impression: Neck pain on left side Condition: Stable Prescriptions: New methocarbamol 750 mg tablet 750 mg PO TID Qty: 21 0RF No Action cholecalciferol (vitamin D3) 25 mcg (1,000 unit) capsule 25 mcg PO DAILY multivitamin with minerals [Hair,Skin and Nails] Tablet 1 tab PO DAILY (DME) Sole Supports See Rx Instructions .ROUTE .MEDSUPPLY Qty: 1 0RF Rx Instructions: As directed CoQmax Ubiquinol 200 mg capsule 200 mg PO DAILY valsartan 160 mg tablet 320 mg PO DAILY Qty: 180 0RF pantoprazole 20 mg tablet,delayed release (DR/EC) 20 mg PO DAILY Qty: 90 3RF bupropion HCl 100 mg tablet sustained-release 12 hr 100 mg PO DAILY Qty: 90 3RF hydrochlorothiazide 25 mg tablet 25 mg PO DAILY Qty: 90 3RF metronidazole 500 mg tablet 500 mg PO BID 7 Days Qty: 14 0RF zoledronic [id number] [Reclast] 5 mg/100 mL piggyback See Rx Instructions IV ONCE Qty: 100 0RF Rx Instructions: 5mg intravenously once; metoprolol succinate 50 mg tablet extended release 24 hr 50 mg PO DAILY Qty: 90 3RF potassium citrate 99 mg capsule 99 mg PO DAILY Discharge Orders: Discharge ED (Routine); Ordered 11/18/22 Ordered By: Raquel Huff Referrals: Lindy Bell MD [Primary Care Provider] - Discharge Diet: Usual diet Discharge Activity: Increase activity as tolerated Patient Instructions: Opioid Safety, Pain Management Activity Restrictions/Additional Instructions: Warm, moist heat recommended. Take Robaxin for pain. Okay to continue Tylenol given you cannot take an NSAID. Follow-up with PCP in 24 to 48 hours if no improvement. Return to the ER with new or worsening symptoms. Coding Level of Care Code ED Polishing Pad Mounter for Sally Coronado
[2022-11-18] MEDS: ketorolac 60 mg/2 mL INJ IM (11:15)
== END 2022-11-18 11:30 | disposition home or self-care (01) ==
PROVIDERS: Emergency Provider Physician Assistant; PCP Family Medicine
DX: M54.2 Cervicalgia (principal); I10 Essential (primary) hypertension; E78.5 Hyperlipidemia, unspecified
CPT/HCPCS: 96372; 99284; J1885

== ENCOUNTER → 2023-01-01 12:00 | Outpatient (BNVA) | payer MEDICARE, SELFPAY | PROVIDERS: PCP Family Medicine; Visit Provider Family Medicine | DX: L81.9 Disorder of pigmentation, unspecified (principal); R41.3 Other amnesia; D22.9 Melanocytic nevi, unspecified; F41.9 Anxiety disorder, unspecified; F32.A Depression, unspecified; M85.88 Other specified disorders of bone density and structure, other site; Z91.89 Other specified personal risk factors, not elsewhere classified; I10 Essential (primary) hypertension; E78.5 Hyperlipidemia, unspecified; K21.9 Gastro-esophageal reflux disease without esophagitis | CPT/HCPCS: 88304 ==

== ENCOUNTER 2023-01-31 12:39 | Outpatient (CLI) | payer MEDICARE, SELFPAY ==
--- NOTE | 2023-01-31 13:00 | MR_ITS ---
WS: [id number] MRI HEAD WITHOUT CONTRAST TECHNIQUE: Sagittal T1, T2 axial, T2 axial FLAIR, axial and coronal T1 images, axial susceptibility w eighted imaging, axial diffusion weighted images, and coronal T2 images were obtained. CLINICAL INFORMATION: memory changes COMPARISON: CT head 2017 FINDINGS: No evidence restricted diffusion to suggest acute ischemia. Ventricular system and basal cisterns are patent. Mild small vessel changes. Mild parenchymal volume loss. Normal posterior fossa. Normal vasc ular flow voids at the skull base. No extra-axial fluid collections. No evidence of mass or mass effect. Normal posterior nasopharynx. P aranasal sinuses and mastoid air cells are well aerated. No hemosiderin on susceptibly weighted images. Normal optic chiasm and pituitary infundibulum. Mild t o moderate symmetric atrophy temporal lobes and hippocampal formations. Normal cavernous sinuses and Meckel's cave. Increased FLAIR signal within the LEFT MCA and insula vessels may be due to artifact versus slow flow or stenosis. Recommend further evaluated with CTA or MRA. MR/MR head wo con* [id number] IMPRESSION: 1. No evidence of restricted diffusion to suggest acute ischemia. 2. Mild small vessel changes with mild parenchymal volume loss. This is slight ly progressed compared to 2017 3. Mild to moderate symmetric atrophy temporal lobes and hippocampal formation s. 4. Normal optic chiasm and pituitary infundibulum. Normal cavernous sinuses an d Meckel's cave. 5. No hemosiderin on susceptibly weighted images. 6. Increased FLAIR signal within the LEFT MCA and insula vessels may be due to artifact versus slow flow or stenosis. Recommend further evaluated with CTA or MRA.
== END 2023-01-31 12:40 | disposition home or self-care (01) ==
PROVIDERS: PCP Family Medicine; Visit Provider Family Medicine
DX: R41.3 Other amnesia (principal)
CPT/HCPCS: 70551

== ENCOUNTER 2023-02-18 08:05 | Outpatient (CLI) | payer MEDICARE, SELFPAY ==
--- NOTE | 2023-02-18 08:30 | CT_ITS ---
WS: [id number] CTA HEAD TECHNIQUE: Contrast enhanced CTA of the head with coronal and sagittal reformatted images and maximum intensity projection (MIP) images. NASCET criteria utilized. CLINICAL INFORMATION: Increased FLAIR signal within the LEFT MCA and insula vessel COMPARISON: MRI January 31, 2023 DLP: 1445.[address] scans at [facility] use at least one of these dose optimization techniques: automated e xposure control; mA and/or kV adjustment per patient size (includes targeted exams where dose is matc hed to clinical indication); or iterative reconstruction. FINDINGS: No evidence of intracranial hemorrhage or mass effect. Ventricular system and basal cistern s are patent. Mild small vessel changes. Moderate parenchymal volume loss. Mastoid air cells and para nasal sinuses are well aerated. INTRACRANIAL CTA: Distal vertebral arteries are patent. Basilar artery is patent. Persistent RIGHT RELOCATION COUNSELOR. Normal va scularity to the RELOCATION COUNSELOR territory bilaterally. Both ICAs are patent at the skull base. Patent anterior communicating artery. Normal vascularity to t he MYRANDA and RIGHT MCA territory. Somewhat diminutive vessels with decreased vascularity in the LEFT in sula and sylvian fissure likely due to small vessel changes. No infarct visualized on the recent MRI. No proximal occlusion. CT/CT angio head [id number] IMPRESSION: 1. No evidence of intracranial hemorrhage or mass effect. 2. No proximal flow-limiting intracranial stenosis. 3. Persistent RIGHT RELOCATION COUNSELOR. 4. Somewhat diminutive 3rd and 4th order vessels with slightly decreased vascu larity in the LEFT insula and sylvian fissure likely due to small vessel diseas e. No acute ischemia seen on the recent MRI. 5. Distal vertebral arteries are patent. Proximal basilar artery is patent.
[2023-02-18 08:54] LABS: Blood Urea Nitrogen 16 mg/dL (8-23)
[2023-02-18] MEDS: iohexol 350 mg/mL 500 mL Btl (per mL) IV (09:12)
== END 2023-02-18 08:06 | disposition home or self-care (01) ==
PROVIDERS: Radiology Diagnostic Radiology; PCP Family Medicine; Visit Provider Family Medicine
DX: R93.0 Abnormal findings on diagnostic imaging of skull and head, not elsewhere classified (principal)
CPT/HCPCS: 70496; 82565; 84520; Q9967

== ENCOUNTER → 2023-04-02 12:52 | Outpatient (BNVA) | payer MEDICARE, SELFPAY | PROVIDERS: PCP Family Medicine; Visit Provider Family Medicine | DX: E78.5 Hyperlipidemia, unspecified (principal); I10 Essential (primary) hypertension | CPT/HCPCS: 80053; 80061 ==

== ENCOUNTER 2023-06-28 08:27 | Emergency (ER) | payer MEDICARE, SELFPAY ==
[2023-06-28 08:36] VITALS: BP 172/86; PULSE 63; RESP 12; TEMP 36.8; O2SAT 97; BMI 36.6
--- NOTE | 2023-06-28 08:56 | W.ED.ALLEREA ---
HPI - Allergic Reaction General: Chief complaint: Allergic Reaction Stated complaint: Face swelling, itching and burning Time Seen by Provider: 06/28/23 08:41 Source: patient Mode of arrival: ambulatory Limitations: no limitations History of Present Illness: HPI narrative: Patient is a nice 73-year-old female who presents to ED today after being sent here by her primary care provider Dr. Bell for further evaluation and treatment of facial swelling. Patient states she initially began facial swelling a few days ago after cleaning out a house and initially thought she had been exposed to something and subsequently having an allergic reaction. She saw Dr. Bell and was given 80 mg IM Depo-Medrol. Patient also started taking Benadryl and Claritin at home. She has failed to notice any form of improvement. She returned to Dr. Bell's office this morning and because edema had worsened and now involving perioral region, was sent to the ED. Patient states she continues to eat and drink normally. She is controlling her saliva. She is not complaining of any difficulty swallowing or shortness of breath. She reports edema and erythema to the face diaz and itches. Patient was on Valsartan but Dr. Bell recommended discontinuation today. MD complaint: facial swelling Onset (ago): day(s) Exposure: unknown Associated symptoms: Reports no associated symptoms; Deny dizziness, hoarseness, nausea or vomiting Severity: moderate Treatment prior to arrival: benadryl and steroids Previous Allergic Reaction History: none Review of Systems Const: Denies: fever(s), chills, body aches, change in appetite, change in weight, fatigue, malaise or night sweats Eyes: Denies: change in vision, blurry vision, floaters or seeing flashes ENMT: Reports: swelling of lips/tongue; Denies: throat pain, uvular edema, enlarged tonsils, odynophagia, hoarseness, oral sores, nasal discharge or nasal congestion Card: Denies: chest pain Resp: Denies: dyspnea GI: Denies: nausea or vomiting Musc: Denies: neck pain, back pain, extremity pain or joint pain Skin/Breast: Reports: rash, pruritus and erythema Neuro: Denies: headache(s), numbness in extremities, weakness in extremities, sensory changes or dizziness PFS ED PFSH: Medical History Anxiety and depression Benign essential HTN Bilateral foot pain Chronic GERD Dyslipidemia Hiatal hernia High risk for hip fracture Mediastinal mass Obesity Osteopenia Urinary incontinence Surgical History History of bilateral carpal tunnel release History of cholecystectomy History of hysterectomy History of sleeve gastrectomy History of tonsillectomy and adenoidectomy Status post implantation of urinary electronic stimulator device Family History Mother Cancer skin cancer Other Bipolar disorder CAD (coronary artery disease) Family history of thyroid problem Hypertension Osteoarthritis Denies family history of Anesthesia complication Bleeding disorder Social History Smoking and tobacco status: never smoked Alcohol intake: never Substance/Drug Use: never Lives independently: Yes Marital status: / Current occupational status: retired Physical Exam Const: COMMON NORMALS: no acute distress, patient oriented x3, no limitations, alert and well nourished GENERAL APPEARANCE: cooperative NUTRITIONAL APPEARANCE: overweight ORIENTATION/CONSCIOUSNESS: Yes awake, Yes oriented to person, Yes oriented to place and Yes oriented to time HENMT: COMMON NORMALS: normocephalic and atraumatic HEAD & SCALP: normal to inspection, normocephalic and atraumatic FACE & SINUS: erythema and edema (diffuse) MOUTH: Normal oral and palatal mucosa present, lip normal and tongue normal THROAT: posterior oropharynx normal, tonsils normal and uvula midline; no uvular edema Eye: COMMON NORMALS: Equal, round and reactive pupils present and EOMs intact bilaterally GENERAL EYE: normal light reflex PERIORBITAL: periorbital findings abnormal positive bilateral periorbital swelling PUPIL: Yes Equal, round and reactive pupils present DIRECT OPHTHALMOSCOPY: Yes normal light reflex Neck/C-Spine: COMMON NORMALS: full ROM, no lymphadenopathy and no meningeal signs GENERAL: Yes normal visual inspection Resp: COMMON NORMALS: normal respiratory effort and clear to auscultation bilaterally AUSCULTATION: clear to auscultation bilaterally Cardio: COMMON NORMALS: regular rate and regular rhythm RATE: regular rate RHYTHM: regular rhythm Extremity: COMMON NORMALS: normal to inspection GENERAL: Yes normal exam except as noted Neuro: CHENTE COMA SCALE: document GCS findings Chente coma scale eye opening: Spontaneous Chente coma scale verbal response: Orientated Chente coma scale motor response: Obey commands Chente coma scale total score: 15 COMMON NORMALS: patient oriented x3, CN's II-XII intact bilaterally, moves all extremities, no focal motor deficits and no sensory deficits noted SENSORIUM/ORIENTATION: Yes alert, Yes oriented to person, Yes oriented to place and Yes oriented to time MENINGEAL SIGNS: Yes no meningeal signs Course Vital Signs: Vital signs: Vital Signs Temperature 98.2 F 06/28/23 08:36 Pulse Rate 59 L 06/28/23 09:20 Respiratory Rate 15 06/28/23 09:20 Blood Pressure 172/86 06/28/23 09:20 Pulse Oximetry 94 06/28/23 09:20 Oxygen Delivery Me thod Room Air 06/28/23 08:36 MDM - Allergic Reaction Medical Decision Making Patient here for erythema and edema affecting her face. She describes as burning and pruritic. Clinically this does appear more so like an allergic reaction. Patient was taking Valsartan which can carry the serious reaction of angioedema. This has since been discontinued by PCP (last dose was yesterday). She was given Solu-Cortef here along with 50mg Benadryl and upon re-examination her periorbital and perioral edema does appear improved. She has never had any complaints of tongue/throat swelling or itching. She reports normal eating/drinking/swallowing/breathing. Will place her on a 6 day prednisone taper and have her continue the antihistamines at home. Recommend close follow up with PCP and strict return to ED precautions discussed with her. Discharge Plan Discharge Patient Disposition: Home Clinical Impression: Allergic reaction Condition: Stable Prescriptions: New prednisone 10 mg tablet 10 mg PO DAILY 10 Days Qty: 20 0RF Rx Instructions: Take 5 tabs on day 1-2, 4 tabs on day 3, 3 tabs on day 4, 2 tabs on day 5, and 1 tab on day 6 Held valsartan 160 mg tablet 320 mg PO BEDTIME Hold Instructions: Resume on 07/12/23. speak to primary care provider before resuming medication No Action multivitamin with minerals [Hair,Skin and Nails] Tablet 2 tab PO QAM hydrochlorothiazide 25 mg tablet 25 mg PO QAM Vitamin D3 125 mcg (5,000 unit) Tablet 5,000 unit PO QAM coQ10 (ubiquinol) 200 mg Capsule 400 mg PO QAM Prevagen 1 tab PO QAM metoprolol succinate 50 mg tablet extended release 24 hr 50 mg PO QAM bupropion HCl 100 mg tablet sustained-release 12 hr 100 mg PO QAM pantoprazole 20 mg tablet,delayed release (DR/EC) 20 mg PO QAM Discharge Orders: Discharge ED (Routine); Ordered 06/28/23 Ordered By: Deanna Macdonald Referrals: Lindy Bell MD [Primary Care Provider] - Activity Restrictions/Additional Instructions: As we discussed you need to return to the emergency department for worsening facial swelling, swelling to your tongue, difficulty breathing or swallowing, or any other concerns you may have. I hope you begin to feel better soon. Coding Level of Care Code ED Intelligence Clerk for Sally Coronado
[2023-06-28] MEDS: diphenhydrAMINE 50 mg/mL SDV 1mL IVP (09:11)
[2023-06-28] MEDS: hydrocortisone 100 mg/2 mL SDV IVP (09:11)
[2023-06-28 09:20] VITALS: BP 172/86; PULSE 59; RESP 15; O2SAT 94
[2023-06-28 09:30] VITALS: BP 153/80; PULSE 59; RESP 20; O2SAT 96
[2023-06-28 10:31] VITALS: BP 153/80; PULSE 59; O2SAT 96
== END 2023-06-28 10:32 | disposition home or self-care (01) ==
PROVIDERS: Emergency Provider Physician Assistant; PCP Family Medicine
DX: T78.40XA Allergy, unspecified, initial encounter (principal); I10 Essential (primary) hypertension; E78.5 Hyperlipidemia, unspecified
CPT/HCPCS: 96374; 96375; 99284; J1200; J1720

== ENCOUNTER 2023-06-29 09:57 | Emergency (ER) | payer MEDICARE, SELFPAY ==
[2023-06-29 10:00] VITALS: BP 160/86; PULSE 68; RESP 16; TEMP 36.7; O2SAT 96; BMI 36.6
--- NOTE | 2023-06-29 10:24 | ED_ITS ---
HPI - Allergic Reaction General: Chief complaint: Allergic Reaction Stated complaint: skin rash face and arms Time Seen by Provider: 06/29/23 10:02 Source: patient Mode of arrival: ambulatory History of Present Illness: HPI narrative: 73-year-old female returns to the emergency room with complaint of what she describes an allergic reaction. She was seen on 2022 by her primary care doctor. She reported at that time 3 days prior she been noting some cleaning she got some facial itching and swelling around the eye. She was given an injection of Solu-Medrol and started on antihistamines and steroid taper. She was seen the following day in the office and they recommend stopping her valsartan. continued her steroids and antihistamines. She was also seen in the emergency room yesterday. She was given Solu-Medrol and Benadryl swelling seemed to improved she was discharged home on prednisone taper. Associated symptoms: Deny abdominal pain, nausea or vomiting Severity: moderate Treatment prior to arrival: none Previous Allergic Reaction History: prior ED visit(s) Review of Systems Const: Denies: fever(s), chills, body aches, change in appetite, fatigue or malaise ENMT: Denies: throat pain, ear or mastoid pain, nasal discharge or nasal congestion Card: Denies: chest pain, edema, dyspnea on exertion or orthopnea Resp: Denies: dyspnea, productive cough or non-productive cough GI: Denies: abdominal pain, nausea, vomiting, hematemesis, coffee ground emesis, diarrhea, constipation, bloating, hematochezia or melena : Denies: flank pain, difficulty voiding, dysuria, urinary frequency or urinary urgency Skin/Breast: Denies: rash or pruritus PFSH ED PFSH: Medical History Anxiety and depression Benign essential HTN Bilateral foot pain Chronic GERD Dyslipidemia Hiatal hernia High risk for hip fracture Mediastinal mass Obesity Osteopenia Urinary incontinence Surgical History History of bilateral carpal tunnel release History of cholecystectomy History of hysterectomy History of sleeve gastrectomy History of tonsillectomy and adenoidectomy Status post implantation of urinary electronic stimulator device Family History Mother Cancer skin cancer Other Bipolar disorder CAD (coronary artery disease) Family history of thyroid problem Hypertension Osteoarthritis Denies family history of Anesthesia complication Bleeding disorder Social History Smoking and tobacco status: never smoked Alcohol intake: never Substance/Drug Use: never Lives independently: Yes Marital status: / Current occupational status: retired Physical Exam Const: GENERAL APPEARANCE: cooperative and comfortable ORIENTATION/CONSCIOUSNESS: Yes awake, Yes oriented to person, Yes oriented to place and Yes oriented to time HENMT: COMMON NORMALS: normocephalic, atraumatic and hearing grossly normal bilaterally HEAD & SCALP: normocephalic and atraumatic OTHER: Facial swelling of the lips eyes and face but no oropharyngeal swelling no uvula swelling no tongue swelling. No stridor. Resp: COMMON NORMALS: normal respiratory effort, No retractions, No use of accessory muscles and clear to auscultation bilaterally AUSCULTATION: clear to auscultation bilaterally Cardio: COMMON NORMALS: regular rate, regular rhythm and No murmurs present (Cardio) RATE: regular rate RHYTHM: regular rhythm GI: COMMON NORMALS: Soft to palpation and No hepatosplenomegaly present AUSCULTATION: Yes normoactive bowel sounds PALPATION: Yes Soft to palpation, No Tenderness to palpation present (GI), No Guarding due to palpation present (GI) and Yes No hepatosplenomegaly present Extremity: COMMON NORMALS: normal to inspection, capillary refill normal, no clubbing, cyanosis or edema, no calf tenderness and no pedal edema Neuro: SENSORIUM/ORIENTATION: Yes oriented to person, Yes oriented to place and Yes oriented to time Skin: COMMON NORMALS: no rashes or lesions noted GENERAL SKIN EXAM: no rashes or lesions noted Course Vital Signs: Vital signs: Vital Signs Temperature 98.0 F 06/29/23 10:00 Pulse Rate 66 06/29/23 10:59 Respiratory Rate 14 06/29/23 10:59 Blood Pressure 176/92 06/29/23 10:59 Pulse Oximetry 96 06/29/23 10:59 Oxygen Delivery Me thod Room Air 06/29/23 10:00 MDM - Allergic Reaction Medical Decision Making We will give her another shot of steroid this morning recommend starting the oral steroid pack tonight. Face patient the swelling can wax and wane for the next several days or week even should generally slowly improve over that time recheck as needed Medical Records I reviewed the patient's medical records. Lab Data I reviewed the patient's lab results. Discharge Plan Discharge Patient Disposition: Home Clinical Impression: Allergic reaction Condition: Stable Prescriptions: No Action multivitamin with minerals [Hair,Skin and Nails] Tablet 2 tab PO QAM hydrochlorothiazide 25 mg tablet 25 mg PO QAM Vitamin D3 125 mcg (5,000 unit) Tablet 5,000 unit PO QAM coQ10 (ubiquinol) 200 mg Capsule 400 mg PO QAM Prevagen 1 tab PO QAM prednisone 10 mg tablet 10 mg PO DAILY 10 Days Qty: 20 0RF Rx Instructions: Take 5 tabs on day 1-2, 4 tabs on day 3, 3 tabs on day 4, 2 tabs on day 5, and 1 tab on day 6 metoprolol succinate 50 mg tablet extended release 24 hr 50 mg PO QAM bupropion HCl 100 mg tablet sustained-release 12 hr 100 mg PO QAM pantoprazole 20 mg tablet,delayed release (DR/EC) 20 mg PO QAM valsartan 160 mg tablet 320 mg PO BEDTIME Hold Instructions: Resume on 07/12/23. speak to primary care provider before resuming medication Discharge Orders: Discharge ED (Routine); Ordered 06/29/23 Ordered By: Shay Daley Referrals: Lindy Bell MD [Primary Care Provider] - Discharge Diet: Usual diet Discharge Activity: Increase activity as tolerated Patient Instructions: Opioid Safety, Pain Management Activity Restrictions/Additional Instructions: Start steroid pack you were previously prescribed this evening. Follow-up with your primary care doctor continue to stay off of the losartan. Coding Level of Care Code ED High School Math Teacher for Sally Coronado
[2023-06-29] MEDS: dexamethasone 10 mg/mL INJ IM (10:45)
[2023-06-29 10:59] VITALS: BP 176/92; PULSE 66; RESP 14; O2SAT 96
== END 2023-06-29 11:00 | disposition home or self-care (01) ==
PROVIDERS: Emergency Provider Family Medicine; PCP Family Medicine
DX: T78.40XA Allergy, unspecified, initial encounter (principal); I10 Essential (primary) hypertension; E78.5 Hyperlipidemia, unspecified
CPT/HCPCS: 96372; 99284; J1100

== ENCOUNTER → 2023-07-03 11:34 | Outpatient (BNVA) | payer MEDICARE, SELFPAY | PROVIDERS: PCP Family Medicine; Visit Provider Family Medicine | DX: T78.40XA Allergy, unspecified, initial encounter (principal); X58.XXXA Exposure to other specified factors, initial encounter | CPT/HCPCS: 86618; 86666; 86757 ==

== ENCOUNTER → 2024-01-01 12:56 | Outpatient (BNVA) | payer MEDICARE, SELFPAY | PROVIDERS: PCP Family Medicine; Visit Provider Family Medicine | DX: R07.9 Chest pain, unspecified; R00.2 Palpitations | CPT/HCPCS: 80053; 80061; 83735; 84443; 85025 ==

== ENCOUNTER 2024-01-03 19:48 | Emergency (ER) | payer MEDICARE, SELFPAY ==
--- NOTE | 2024-01-03 20:37 | XRR_ITS ---
PROCEDURE INFORMATION: Exam: XR Chest Exam date and time: 01/03/2024 8:46 PM Age: 74 years old Clinical indication: Shortness of breath and other: Tahycardia; Patient HX: Tachycardia; Dizziness; Diaphoresis TECHNIQUE: Imaging protocol: Radiologic exam of the chest. Views: 1 view. COMPARISON: CT chest w con* [id number] 02/28/2021 11:22 AM FINDINGS: Lungs: Unremarkable. No consolidation. Pleural spaces: Unremarkable. No pleural effusion. No pneumothorax. Heart/Mediastinum: Unremarkable. No cardiomegaly. Bones/joints: Unremarkable. XR/XR chest 1V portable [id number] IMPRESSION: No acute findings.
[2024-01-03 20:50] LABS: Basophils % 0.3 %; Eosinophils # 0.2 10^3/uL (0.0-0.8); Eosinophils % 2.2 %; Hematocrit 44.5 % (36-47); Lymphocytes # 1.9 10^3/uL (0.8-4.8); Lymphocytes % 20.8 %; Mean Corpuscular Hemoglobin 32.2 pg (27-33); Mean Corpuscular Volume 97.6 fl (85-98); Mean Platelet Volume 10.6 fL (7.4-10.4); Monocytes # 0.7 10^3/uL (0.2-0.9); Monocytes % 7.9 %; Neutrophils # 6.11 10^3/uL (1.8-7.7); Neutrophils % 68.6 %; Nucleated Red Blood Cells % 0 %; Platelet Count 266 10^3/cmm (157-399); Red Blood Count 4.56 10^6/uL (3.85-5.65); Red Cell Distribution Width 13.2 % (12.1-15.1); White Blood Count 8.91 10^3/uL (3.29-11.43)
--- NOTE | 2024-01-03 20:57 | ECG_ITS ---
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 Measurements Intervals [place] Rate: 63 P: 40 IN: 170 QRS: 20 QRSD: 84 T: 29 QT: 386 QTc: 398 Interpretive Statements SINUS RHYTHM Compared to ECG 09/26/2017 11:28:55 No significant changes Electronically Signed On 01-04-2024 8:49:42 PREBOARDER by Adi Ordoñez M.D. [id number]
--- NOTE | 2024-01-03 21:03 | ED_ITS ---
HPI - Dizziness 2 General: Chief Complaint: Dizziness Stated Complaint: Weak\ Time Seen by Provider: 01/03/24 20:04 History of Present Illness: HPI Narrative: Patient presents to the ER with complaints of dizziness. When patient was eating dinner she says she broke out in a cold sweat felt like the room was spinning and felt she is going to pass out. Patient then came immediately here for further evaluation and treatment. Patient also says she had 1 of these episodes on Saturday and had palpitations. Patient then went to her family doctor who is going to further evaluate her with a stress test. Patient denies any chest pain or shortness of breath nausea or vomiting during these times. Patient is never had these before. Review of Systems 2 General: Reports: 10 or more systems reviewed and unremarkable except in HPI and below PFSH ED 2 PFSH: Medical History Obesity Chronic GERD Mediastinal mass High risk for hip fracture Osteopenia Anxiety and depression Urinary incontinence Benign essential HTN Dyslipidemia Bilateral foot pain Hiatal hernia Surgical History Status post implantation of urinary electronic stimulator device History of sleeve gastrectomy History of cholecystectomy History of hysterectomy History of bilateral carpal tunnel release History of tonsillectomy and adenoidectomy Family History Mother Cancer skin cancer Other Bipolar disorder CAD (coronary artery disease) Family history of thyroid problem Hypertension Osteoarthritis Denies family history of Anesthesia complication Bleeding disorder Social History Smoking and tobacco/nicotine status: never used tobacco/nicotine Alcohol intake: never Substance/Drug Use: never Lives independently: Yes Marital status: / Current occupational status: retired Physical Exam 2 Const: COMMON NORMALS: no acute distress, average body habitus, patient oriented x3, no limitations, healthy appearing, alert and well nourished HENMT: COMMON NORMALS: normocephalic, atraumatic, hearing grossly normal bilaterally, external ears normal, Normal external nose present, moist oral mucous membranes and oropharynx normal HEAD & SCALP: normocephalic and atraumatic NOSE: Normal external nose present EXTERNAL EAR: Yes external ears normal Neck/C-Spine: COMMON NORMALS: no JVD Chest: COMMONS NORMALS: normal inspection of the chest and normal palpation of entire chest wall Resp: COMMON NORMALS: normal respiratory effort, No retractions, No use of accessory muscles and clear to auscultation bilaterally AUSCULTATION: clear to auscultation bilaterally Cardio: COMMON NORMALS: no JVD, regular rate, regular rhythm, S1 normal heart sound present, S2 normal heart sound present, No gallops present (Cardio), No clicks present (Cardio), No murmurs present (Cardio) and No rub (Cardio) R ATE: regular rate RHYTHM: regular rhythm HEART SOUNDS: S1 normal heart sound present and S2 normal heart sound present GI: COMMON NORMALS: Normal to inspection, nondistended, normoactive bowel sounds present, Soft to palpation, non-tender, No hepatosplenomegaly present and no masses PALPATION: Yes Soft to palpation and Yes No hepatosplenomegaly present Neuro: COMMON NORMALS: patient oriented x3 SENSORIUM/ORIENTATION: Yes alert Course 2 Vital Signs: Vital signs: Vital Signs Pulse Rate 65 01/03/24 23:12 Respiratory Rate 16 01/03/24 23:12 Blood Pressure 139/76 01/03/24 23:12 Pulse Oximetry 95 01/03/24 23:12 Oxygen Delivery Me thod Room Air 01/03/24 19:54 MDM - Dizziness Medical Decision Making Lab work was performed as well as x-ray these did not show any acute cause of dizziness or clamminess. By the time patient's results was finalized patient was feeling much better. Patient be discharged home to follow-up with her PCP Differential Diagnosis Unlikely adverse reaction to drug, benign paroxysmal positional vertigo, orthostatic hypotension, vertebral basilar insufficiency, cerebrovascular accident, acute vestibular neuronitis or transient cerebral ischemia Medical Records I reviewed the patient's medical records. Lab Data I reviewed the patient's lab results. 01/03/24 20:42 01/03/24 20:42 Radiology Impressions Chest X-Ray 01/03/24 20:37 IMPRESSION: No acute findings. Laboratory Results WBC 8.91 10^3/uL (3.29-11.43) 01/03/24 20:42 RBC 4.56 10^6/uL (3.85-5.65) 01/03/24 20:42 Hgb 14.70 g/dL (11.27-16.99) 01/03/24 20:42 Hct 44.5 % (36-47) 01/03/24 20:42 MCV 97.6 fl (85-98) 01/03/24 20:42 MCH 32.2 pg (27-33) 01/03/24 20:42 MCHC 33.0 g/dL (30-55) 01/03/24 20:42 RDW 13.2 % (12.1-15.1) 01/03/24 20:42 Plt Count 266 10^3/cmm (157-399) 01/03/24 20:42 MPV 10.6 fL (7.4-10.4) H 01/03/24 20:42 Neut % (Auto) 68.6 % 01/03/24 20:42 Lymph % (Auto) 20.8 % 01/03/24 20:42 [place] % (Auto) 7.9 % 01/03/24 20:42 Eos % (Auto) 2.2 % 01/03/24 20:42 Baso % (Auto) 0.3 % 01/03/24 20:42 Neut # (Auto) 6.11 10^3/uL (1.8-7.7) 01/03/24 20:42 Lymph # (Auto) 1.9 10^3/uL (0.8-4.8) 01/03/24 20:42 [place] # (Auto) 0.7 10^3/uL (0.2-0.9) 01/03/24 20:42 Eos # (Auto) 0.2 10^3/uL (0.0-0.8) 01/03/24 20:42 Baso # (Auto) 0.0 10^3/uL (0.0-0.1) 01/03/24 20:42 Nucleated RBC % (auto) 0 % 01/03/24 20:42 Nucleated RBCs # 0.0 /100WBC 01/03/24 20:42 Sodium 144 mmol/L (136-145) 01/03/24 20:42 Potassium 4.2 mmol/L (3.5-5.1) 01/03/24 20:42 Chloride 105 mmol/L (98-107) 01/03/24 20:42 Carbon Dioxide 27 mmol/L (22-29) 01/03/24 20:42 Anion Gap 16.2 (5-19) 01/03/24 20:42 BUN 20 mg/dL (8-23) 01/03/24 20:42 Creatinine 0.7 mg/dL (0.5-0.9) 01/03/24 20:42 GFR Calculation Not Reportable 01/03/24 20:42 Glucose 136 mg/dL (65-115) H 01/03/24 20:42 Calculated Osmolality 303 mOsm/kg (285-295) H 01/03/24 20:42 Calcium 9.6 mg/dL (8.5-10.5) 01/03/24 20:42 Magnesium 2.2 mg/dL (1.7-2.3) 01/03/24 20:42 Total Bilirubin 0.2 mg/dL (0.15-1.2) 01/03/24 20:42 AST 22 U/L (0-32) 01/03/24 20:42 ALT 23 U/L (0-33) 01/03/24 20:42 Alkaline Phosphatase 36 U/L (35-105) 01/03/24 20:42 Troponin T Baseline 7 ng/L (0-10) 01/03/24 20:42 Troponin T 120 Minute 6.24 ng/L (0-10) 01/03/24 22:11 Delta Troponin T -0.76 ABS# (0-10) L 01/03/24 22:11 Total Protein 6.5 g/dL (6.6-8.7) L 01/03/24 20:42 Albumin 4.1 g/dL (3.5-5.2) 01/03/24 20:42 Globulin 2.4 g/dL (1.3-4.6) 01/03/24 20:42 Urine Color Yellow (Yellow) 01/03/24 21:03 Urine Appearance Clear (CLEAR) 01/03/24 21:03 Urine pH 6 (5-7) 01/03/24 21:03 Ur Specific [place] 1.020 (1.005-1.030) 01/03/24 21:03 Urine Protein Trace (Negative) 01/03/24 21:03 Urine Glucose (UA) Norm (Normal) 01/03/24 21:03 Urine Ketones 1+ (Negative) H 01/03/24 21:03 Urine Blood Neg (Negative) 01/03/24 21:03 Urine Nitrate Negative (Negative) 01/03/24 21:03 Urine Bilirubin Neg (Negative) 01/03/24 21:03 Urine Urobilinogen 4 mg/dL (Negative) H 01/03/24 21:03 Ur Leukocyte Esterase Negative (Negative) 01/03/24 21:03 Urine RBC 0-4 /hpf (0-2) H 01/03/24 21:03 Urine WBC 0-4 /hpf (0-5) H 01/03/24 21:03 Ur Squamous Epith Cells 5-10 /hpf (0-5) H 01/03/24 21:03 Amorphous Sediment Not Reportable 01/03/24 21:03 Urine Bacteria Trace /hpf (NONE) 01/03/24 21:03 Hyaline Casts 5-10 /lpf H 01/03/24 21:03 Coarse Granular Casts 0-4 /lpf H 01/03/24 21:03 Urine Mucus 1+ /hpf 01/03/24 21:03 All radiology interpretation(s) finalized by discharge EKG Data EKG 1: I personally reviewed and interpreted this EKG as follows: EKG interpretation date: 01/03/24 EKG interpretation time: 20:57 Prior EKG tracings: not available for review Interpretation: Ventricular rate 63 bpm, CA interval 170, QRS duration 84, QTc of 394, sinus rhythm EKG 2: I personally reviewed and interpreted this EKG as follows: EKG interpretation date: 01/03/24 EKG interpretation time: 22:50 Prior EKG tracings: available for review Interpretation: Ventricular rate 59 bpm, CA interval 129, QRS duration 86, QTc of 423, sinus bradycardia Discharge Plan Discharge Patient Disposition: Home Clinical Impression: Nonspecific dizziness Condition: Stable Prescriptions: No Action multivitamin with minerals [Hair,Skin and Nails] Tablet 2 tab PO QAM triamcinolone acetonide [Kenalog] 40 mg/mL suspension 40 mg intra-articular ONCE Qty: 1 0RF lidocaine (PF) 10 mg/mL (1 %) solution 40 mg intra-articular ONCE Qty: 4 0RF hydrochlorothiazide 25 mg tablet See Rx Instructions .ROUTE .COMPLEX Qty: 90 0RF Dose Instruction: Take 1 tablet by mouth once daily Rx Instructions: Take 1 tablet by mouth once daily pantoprazole 20 mg tablet,delayed release (DR/EC) See Rx Instructions .ROUTE .COMPLEX Qty: 90 0RF Dose Instruction: Take 1 tablet by mouth once daily Rx Instructions: Take 1 tablet by mouth once daily metoprolol succinate 50 mg tablet extended release 24 hr See Rx Instructions .ROUTE .COMPLEX Qty: 90 0RF Dose Instruction: Take 1 tablet by mouth once daily Rx Instructions: Take 1 tablet by mouth once daily (DME) cpap supplies See Rx Instructions .Route .MEDSUPPLY Qty: 1 0RF Rx Instructions: As directed bupropion HCl 100 mg tablet sustained-release 12 hr See Rx Instructions .ROUTE .COMPLEX Qty: 90 3RF Dose Instruction: Take 1 tablet by mouth once daily Rx Instructions: Take 1 tablet by mouth once daily Vitamin D3 125 mcg (5,000 unit) Tablet 5,000 unit PO QAM coQ10 (ubiquinol) 200 mg Capsule 400 mg PO QAM Prevagen 1 tab PO QAM valsartan 160 mg tablet 320 mg PO BEDTIME Hold Instructions: Resume on 07/12/23. speak to primary care provider before resuming medication Discharge Orders: Discharge ED (Routine); Ordered 01/03/24 Ordered By: Mikhail Cancino Referrals: Lindy Bell MD [Primary Care Provider] - 1 week Patient Instructions: Lightheadedness (ED), Dizziness (ED) Activity Restrictions/Additional Instructions: Your evaluation in ER did not show any acute cause of your dizziness and lightheadedness. Please follow-up with your family practice physician within the next 7 to 10 days for further evaluation and treatment. If your condition worsens or returns please feel free to return to the ER. Coding Level of Care Code ED Medical Sales Representative for Sally Coronado
[2024-01-03 21:09] LABS: Alanine Aminotransferase 23 U/L (0-33); Albumin Level 4.1 g/dL (3.5-5.2); Alkaline Phosphatase 36 U/L (35-105); Anion Gap 16.2 (5-19); Aspartate Amino Transferase 22 U/L (0-32); Blood Urea Nitrogen 20 mg/dL (8-23); Calcium 9.6 mg/dL (8.5-10.5); Carbon Dioxide 27 mmol/L (22-29); Chloride 105 mmol/L (98-107); Creatinine Clr Calc Pharmacy 71.1679; Globulin 2.4 g/dL (1.3-4.6); Glucose 136 mg/dL (65-115); Magnesium 2.2 mg/dL (1.7-2.3); Osmolality Calculated 303 mOsm/kg (285-295); Potassium 4.2 mmol/L (3.5-5.1); Sodium 144 mmol/L (136-145); Total Bilirubin 0.2 mg/dL (0.15-1.2); Total Protein 6.5 g/dL (6.6-8.7)
[2024-01-03 21:13] LABS: Troponin(5th) Baseline 7 ng/L (0-10)
[2024-01-03 21:23] LABS: Add Urine Microscopic? YES; Bilirubin Urine Neg (Negative); Blood Urine Neg (Negative); Glucose Urine UA Norm (Normal); Ketones Urine 1+ (Negative); Leukocyte Esterase Urine Negative (Negative); Nitrate Urine Negative (Negative); Protein Urine Trace (Negative); Urine Appearance Clear (CLEAR); Urine Color Yellow (Yellow); Urobilinogen Urine 4 mg/dL (Negative); pH Urine 6 (5-7)
[2024-01-03 21:24] LABS: RBC Urine 0-4 /hpf (0-2); WBC Urine 0-4 /hpf (0-5)
[2024-01-03 21:25] LABS: Bacteria Urine TRACE /hpf; Coarse Granular Casts Urine 0-4 /lpf; Mucus Urine 1+ /hpf
[2024-01-03 22:33] VITALS: BP 163/100; PULSE 65; RESP 16; O2SAT 95
--- NOTE | 2024-01-03 22:37 | ECG_ITS ---
[facility] Test Date: 2024-01-03 Pat Name: Gabrielle Austin Department: Room: Gender: Female Filler In: : 1950 Requested By: Mikhail Cancino Order Number: [id number] Jose Antonio MD: Adi Ordoñez M.D. Measurements Intervals [place] Rate: 69 P: 30 NM: 171 QRS: 6 QRSD: 86 T: 18 QT: 385 QTc: 414 Interpretive Statements SINUS RHYTHM MINIMAL VOLTAGE CRITERIA FOR LVH, CONSIDER NORMAL VARIANT [MEETS CRITERIA IN ONE OF: R(aVL), S(V1), R(V5), R(V5/V6)+S(V1)] Compared to ECG 09/26/2017 11:28:55 No significant changes Electronically Signed On 01-04-2024 8:49:55 FIRER LOCOMOTIVE CRANE by Adi Ordoñez M.D. [id number]
[2024-01-03 22:38] LABS: Troponin 5 2HR 6.24 ng/L (0-10)
[2024-01-03 22:39] LABS: Troponin 5 2HR Delta -0.76 ABS# (0-10)
[2024-01-03 23:12] VITALS: BP 139/76; PULSE 65; RESP 16; O2SAT 95
== END 2024-01-03 23:13 | disposition home or self-care (01) ==
PROVIDERS: Emergency Provider Emergency Medicine; PCP Family Medicine
DX: R42 Dizziness and giddiness (principal); I10 Essential (primary) hypertension; E78.5 Hyperlipidemia, unspecified
CPT/HCPCS: 36415; 71045; 80053; 81001; 83735; 84484; 85025; 93005; 99285

== ENCOUNTER → 2024-01-09 09:34 | Outpatient (BNVA) | payer MEDICARE, SELFPAY | PROVIDERS: PCP Family Medicine; Visit Provider Podiatrist Foot & Ankle Surgery | DX: M79.671 Pain in right foot (principal); M79.672 Pain in left foot; M72.2 Plantar fascial fibromatosis | CPT/HCPCS: 73630; 99203 ==

== ENCOUNTER 2024-01-22 09:16 | Outpatient (RCR) | payer MEDICARE, SELFPAY | END 2024-01-26 23:59 | disposition home or self-care (01) | LOC: SPT 09:16 | PROVIDERS: PCP Family Medicine; Visit Provider Podiatrist Foot & Ankle Surgery | DX: M72.2 Plantar fascial fibromatosis (principal) | CPT/HCPCS: 97140; 97161 ==

== ENCOUNTER 2024-01-27 06:00 | Outpatient (RCR) | payer MEDICARE, SELFPAY | END 2024-02-25 23:59 | disposition home or self-care (01) | LOC: SPT 06:00 | PROVIDERS: PCP Family Medicine; Visit Provider Podiatrist Foot & Ankle Surgery | DX: M72.2 Plantar fascial fibromatosis (principal) | CPT/HCPCS: 97035; 97110; 97140 ==

== ENCOUNTER 2024-02-07 07:55 | Outpatient (CLI) | payer MEDICARE, SELFPAY ==
--- NOTE | 2024-02-07 | ECG_ITS ---
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 Interpretive Statements NAME OF STUDY: LEXISCAN SESTAMIBI STRESS TEST INDICATION: [Chest Pain] Procedure: At the baseline, the blood pressure was 138/75 mmHg with a heart rate of 64 bpm. The electrocardiogram showed normal sinus rhythm, normal axis with normal ST and T's. The Lexiscan was infused over a period of 20 seconds. A total of 0.4 mg of Lexiscan was infused. The stress phase was continued for a total of 5 minutes. Heart rate was at the end of stress phase was 71 bpm and a blood pressure of 204/50 mmHg. The EKG at the peak infusion revealed normal sinus rhythm with no significant ST-T wave changes. Sestamibi was injected 20 seconds after the Lexiscan infusion. Blood pressure at the end of recovery phase was 203/58 mmHg with a heart rate of 69 bpm. Conclusion: 1. Normal EKG response to Lexiscan infusion 2. No Lexiscan induced chest pain or cardiac arrhythmia. 3. Normal blood pressure and heart rate response. 4. Sestamibi/sestamibi perfusion scan pending; see separate report. Electronically Signed On 02-13-2024 12:50:42 CDT by Alfredo Nieto M.D. [id number]
[2024-02-07 07:57] VITALS: BMI 36.0
--- NOTE | 2024-02-07 08:01 | NMCV_ITS ---
NM elkin perf SPECT r/s* [id number] Gabrielle Austin Age: 74 Gender: F : 1950 Exam Date: 02/07/2024 08:53 Ordering Phys: Lindy Bell MD Technologist: ABHILASH Shine Exam [facility]: [facility] Indications: CHEST PAIN STRESS TEST Please see separate stress test report in Ephiphany for full findings IMAGE PROTOCOL Rest/Stress 1 Lexiscan Day Radiopharmaceutical Dose (mCi) Administration Site Administered by Rest: Tc-99m 10.6 IV ABHILASH Fink Sestamibi Stress:Tc-99m 32.6 IV ABHILASH Fink Sestamibi Rest: 07-Feb-2024 60 Discovery 630 Stress: 07-Feb-2024 30 Discovery 630 0.4mg Lexiscan. Images obtained in supine and prone position. SPECT RESULTS Technical Quality: Excellent Raw Data Analysis: Normal Image Corrections: No attenuation or motion correction applied Summed Stress Score: 0 Summed Rest Score: 0 Summed Difference Score: 0 PERFUSION FINDINGS SPECT images demonstrate homogeneous tracer distribution throughout the myocardium. FUNCTIONAL RESULTS (calculated via Gated SPECT) Stress Image LV EF (%): 76 Stress EDV (mL):58 TID: 0.88 Stress ESV (mL):14 FUNCTIONAL FINDINGS: There is normal left ventricular systolic function. IMPRESSIONS 1. Normal myocardial perfusion imaging with no evidence of ischemia 2. LV systolic function is normal Alfredo Nieto MD (Electronically Signed) Final Date: 08 February 2024 14:31 S
[2024-02-07] MEDS: regadenoson 0.4 Mg/5 ml Syringe 0.400000000000000022 MG IVP (09:55)
[2024-02-07 10:13] VITALS: BP 140/51; PULSE 62
== END 2024-02-07 07:56 | disposition home or self-care (01) ==
PROVIDERS: PCP Family Medicine; Visit Provider Family Medicine
DX: R07.9 Chest pain, unspecified (principal)
CPT/HCPCS: 36415; 78452; 93017; 96374; A9500; J2785

== ENCOUNTER → 2024-02-24 09:23 | Outpatient (BNVA) | payer MEDICARE, SELFPAY | PROVIDERS: PCP Family Medicine; Visit Provider Podiatrist Foot & Ankle Surgery | DX: M72.2 Plantar fascial fibromatosis (principal) | CPT/HCPCS: 99213 ==

== ENCOUNTER 2024-08-16 15:14 | Emergency (ER) | payer MEDICARE, SELFPAY ==
[2024-08-16 15:19] VITALS: BP 150/74; PULSE 71; TEMP 36.8; O2SAT 98; BMI 35.2
--- NOTE | 2024-08-16 15:47 | ED_ITS ---
HPI - Ear Problem General: Chief complaint: Ear Stated complaint: Pain behind left ear Time Seen by Provider: 08/16/24 15:40 History of Present Illness: 74-year-old female comes in today with p ostauricular pain that has been intermittent since last night. Patient reports that it appears to be like shooting pain just behind the ear. Patient had a similar episode in October 2022. At that time patient was thought to have a muscle spasm or some intervertebral disc disease. Patient was treated with methocarbamol. Patient reports that she do not know if it was exactly like that but it did improve and she did follow-up with her primary care. Patient states this started last night at about midnight. And she has tried some [id number] pain relievers with no relief. Patient appears nontoxic. Patient denies fever, headache, chills, neck or back pain, chest pain, or shortness of breath, or nausea and vomiting. Patient appears nontoxic. Patient appears to be having intermittent episodes of shooting pain. Related Data Home Medications Medication Instructions Recorded Confirmed multivitamin with minerals 2 tab PO QAM 05/12/20 05/14/24 (Hair,Skin and Nails tablet) Prevagen 1 tab PO QAM 06/28/23 05/14/24 cholecalciferol (vitamin D3) 125 5,000 unit PO QAM 06/28/23 05/14/24 mcg (5,000 unit) tablet (Vitamin D3) coQ10 (ubiquinol) 200 mg capsule 400 mg PO QAM 06/28/23 05/14/24 valsartan 160 mg tablet 320 mg PO BEDTIME 06/28/23 05/14/24 Previous Rx's Medication Instructions Recorded bupropion HCl 100 mg tablet,12 hr See Rx Instructions .Route 01/01/24 sustained-release .COMPLEX #90 tabs Sole Supports #1 ea 01/09/24 cpap supplies #1 ea 01/17/24 hydrochlorothiazide 25 mg tablet See Rx Instructions .Route 05/14/24 .COMPLEX #90 tabs metoprolol succinate 50 mg See Rx Instructions .Route 05/14/24 tablet,extended release 24 hr .COMPLEX #90 tabs pantoprazole 20 mg tablet,delayed See Rx Instructions .Route 05/14/24 release .COMPLEX #90 tabs gabapentin 100 mg capsule 100 mg PO TID #21 caps 08/16/24 valacyclovir 1 gram tablet 1,000 mg PO Q8H 7 days #21 tabs 08/16/24 Allergies Allergy/AdvReac Type Severity Reaction Status Date / Time doxycycline Allergy Severe ALGY-Anaphy Verified 08/16/24 15:25 laxis pravastatin Allergy Mild myalgias Verified 08/16/24 15:25 ezetimibe Allergy swelling Verified 08/16/24 15:25 Tetracyclines Allergy ALGY-Swell Verified 08/16/24 15:25 Lip/Tongue/Throat Review of Systems General: Reports: 10 or more systems reviewed and unremarkable except in HPI and below PFSH ED PFSH: Medical History Obesity Chronic GERD Mediastinal mass High risk for hip fracture Osteopenia Anxiety and depression Urinary incontinence Benign essential HTN Dyslipidemia Bilateral foot pain Hiatal hernia Surgical History Status post implantation of urinary electronic stimulator device History of sleeve gastrectomy History of cholecystectomy History of hysterectomy History of bilateral carpal tunnel release History of tonsillectomy and adenoidectomy Family History Mother Cancer skin cancer Other Bipolar disorder CAD (coronary artery disease) Family history of thyroid problem Hypertension Osteoarthritis Denies family history of Anesthesia complication Bleeding disorder Social History Smoking and tobacco/nicotine status: never used tobacco/nicotine Alcohol intake: never Substance/Drug Use: never Lives independently: Yes Marital status: / Current occupational status: retired Physical Exam Const: COMMON NORMALS: alert HENMT: COMMON NORMALS: normocephalic, external ears normal, TM's normal bilaterally and Normal external nose present HEAD & SCALP: normocephalic NOSE: Normal external nose present EXTERNAL EAR: Yes external ears normal and Yes other (No postauricular adenopathy or redness) TYMPANIC MEMBRANE: TM's normal bilaterally MOUTH: Normal oral and palatal mucosa present THROAT: posterior oropharynx normal Eye: GENERAL EYE: appearance normal, both eyes and all related structures Neck/C-Spine: COMMON NORMALS: full ROM CERVICAL SPINE: Yes cervical ROM normal, No Cervical spine tenderness and No Paracervical muscle tenderness Chest: COMMONS NORMALS: normal palpation of entire chest wall Resp: COMMON NORMALS: normal respiratory effort and clear to auscultation bilaterally AUSCULTATION: clear to auscultation bilaterally Cardio: COMMON NORMALS: regular rate and regular rhythm RATE: regular rate RHYTHM: regular rhythm GI: COMMON NORMALS: Soft to palpation and non-tender PALPATION: Yes Soft to palpation Back/Pelvis: COMMON NORMALS: thoracic and lumbar spine normal to inspection Extremity: COMMON NORMALS: full ROM and no pedal edema Neuro: SENSORIUM/ORIENTATION: Yes alert Psych: COMMON NORMALS: cooperative Skin: COMMON NORMALS: turgor normal GENERAL SKIN EXAM: turgor normal Course Vital Signs: Vital signs: Vital Signs Temperature 98.3 F 08/16/24 15:19 Pulse Rate 71 08/16/24 15:19 Blood Pressure 150/74 08/16/24 15:19 Pulse Oximetry 98 08/16/24 15:19 Oxygen Delivery Me thod Room Air 08/16/24 15:19 MDM - Ear Medical Decision Making 74-year-old female comes in with pain intermittent left ear. Patient has had similar episodes in the past. On exam patient moves all extremities well. No pain is elicited along the spine or paraspinous muscles. In the area of pain there is some mild swelling but no significant redness, vesiculation or lymphadenopathy. Bilateral TMs are normal. Differential diagnosis includes but not limited to neuralgia, herpes zoster, viral syndrome, intervertebral disc disease, facet arthritis, unlikely ACS, unlikely cerebrovascular accident. I believe the patient most likely has some neuralgia either secondary to a viral exacerbation or possibly intervertebral disc disease. Patient be treated for viral activation with valacyclovir, 10 mg dexamethasone, and some gabapentin 100 mg. Patient was recommended to follow-up with primary care. Patient can use [id number] Tylenol and ibuprofen along with muscle rubs for further pain. Patient stated understanding. No radiology studies performed this visit EKG Data EKG 1: I personally reviewed and interpreted this EKG as follows: EKG interpretation date: 08/16/24 EKG interpretation time: 16:22 Prior EKG tracings: not available for review Interpretation: EKG shows a sinus rhythm with a regular right at [address] elevation or ectopy is noted. No prior exam was available for comparison. Mild artifact was present. Computer generated interpretation: Sinus rhythm. Compared to EKG 01/03/20242056 no significant changes. Discharge Plan Discharge Patient Disposition: Home Clinical Impression: Neuralgia and neuritis, unspecified Condition: Stable Prescriptions: New valacyclovir 1 gram tablet 1,000 mg PO Q8H 7 Days Qty: 21 0RF gabapentin 100 mg capsule 100 mg PO TID Qty: 21 0RF No Action multivitamin with minerals [Hair,Skin and Nails] Tablet 2 tab PO QAM triamcinolone acetonide [Kenalog] 40 mg/mL suspension 40 mg intra-articular ONCE Qty: 1 0RF lidocaine (PF) 10 mg/mL (1 %) solution 40 mg intra-articular ONCE Qty: 4 0RF bupropion HCl 100 mg tablet sustained-release 12 hr See Rx Instructions .ROUTE .COMPLEX Qty: 90 3RF Dose Instruction: Take 1 tablet by mouth once daily Rx Instructions: Take 1 tablet by mouth once daily (DME) Sole Supports See Rx Instructions .Route .MEDSUPPLY Qty: 1 0RF Rx Instructions: As directed pantoprazole 20 mg tablet,delayed release (DR/EC) See Rx Instructions .ROUTE .COMPLEX Qty: 90 0RF Dose Instruction: Take 1 tablet by mouth once daily Rx Instructions: Take 1 tablet by mouth once daily metoprolol succinate 50 mg tablet extended release 24 hr See Rx Instructions .ROUTE .COMPLEX Qty: 90 0RF Dose Instruction: Take 1 tablet by mouth once daily Rx Instructions: Take 1 tablet by mouth once daily hydrochlorothiazide 25 mg tablet See Rx Instructions .ROUTE .COMPLEX Qty: 90 0RF Dose Instruction: Take 1 tablet by mouth once daily Rx Instructions: Take 1 tablet by mouth once daily (DME) cpap supplies See Rx Instructions .Route .MEDSUPPLY Qty: 1 0RF Rx Instructions: As directed Vitamin D3 125 mcg (5,000 unit) Tablet 5,000 unit PO QAM coQ10 (ubiquinol) 200 mg Capsule 400 mg PO QAM Prevagen 1 tab PO QAM valsartan 160 mg tablet 320 mg PO BEDTIME Hold Instructions: Resume on 07/12/23. speak to primary care provider before resuming medication Discharge Orders: Discharge ED (Routine); Ordered 08/16/24 Ordered By: Julian Saha Referrals: Lindy Bell MD [Primary Care Provider] - Discharge Diet: Usual diet Discharge Activity: Increase activity as tolerated Patient Instructions: Earache (ED) Activity Restrictions/Additional Instructions: Take medication as directed. Drink plenty of water and fluids. You can use acetaminophen or ibuprofen for other pain relief. Use ice or heat for other discomfort. Follow-up with primary care for recheck. Return to ED for worsening symptoms such as chest pain, shortness of breath, or fever greater than 101. Coding Level of Care Code ED Wireline Field Operator for Sally Coronado
--- NOTE | 2024-08-16 15:53 | ECG_ITS ---
[facility]: 2024-08[facility]16 Pat Name: Gabrielle Austin Department: Room: Gender: Female It Director: : 1950 Requested By: Julian Beltre Order Number: [id number] Reading MD: BESS BOLAND Measurements Intervals [place] Rate: 62 P: -4 MN: 157 QRS: 37 QRSD: 82 T: 40 QT: 404 QTc: 411 Interpretive Statements SINUS RHYTHM Compared to ECG 01/03/2024 20:57:18 No significant changes Electronically Signed On 08-18-2024 21:02:18 CDT by BESS BOLAND [id number]
[2024-08-16] MEDS: dexamethasone 10 mg/mL INJ IM (16:18)
[2024-08-16 16:24] VITALS: BP 150/75; PULSE 68; O2SAT 96
== END 2024-08-16 16:37 | disposition home or self-care (01) ==
PROVIDERS: Emergency Provider Nurse Practitioner Family; PCP Family Medicine
DX: M79.2 Neuralgia and neuritis, unspecified (principal); I10 Essential (primary) hypertension; E78.5 Hyperlipidemia, unspecified
CPT/HCPCS: 93005; 96372; 99284; J1100

== ENCOUNTER → 2025-01-15 09:34 | Outpatient (BNVA) | payer MEDICARE, SELFPAY | PROVIDERS: PCP Family Medicine; Visit Provider Family Medicine | DX: I10 Essential (primary) hypertension (principal); E78.5 Hyperlipidemia, unspecified | CPT/HCPCS: 80053; 80061 ==

== ENCOUNTER → 2025-04-27 14:02 | Outpatient (BNVA) | payer MEDICARE, SELFPAY | PROVIDERS: PCP Family Medicine; Visit Provider Family Medicine | DX: E78.5 Hyperlipidemia, unspecified (principal); G45.9 Transient cerebral ischemic attack, unspecified | CPT/HCPCS: 80053; 80061; 83735; 84443; 85025 ==

== ENCOUNTER 2025-05-03 14:11 | Outpatient (CLI) | payer MEDICARE, SELFPAY ==
--- NOTE | 2025-05-03 15:15 | MR_ITS ---
WS: [id number] MRI HEAD WITHOUT CONTRAST TECHNIQUE: Sagittal T1, T2 axial, T2 axial FLAIR, axial and coronal T1 images, axial susceptibility weighted imaging, axial diffusion weighted images, and coronal T2 images were obtained. CLINICAL INFORMATION: TIA COMPARISON: 2022 FINDINGS: Tiny focus of partially restricted diffusion at the LEFT frontal parietal junction measuring 3 mm compatible with a small amount of acute to subacute ischemia. No other foci of restricted diffusion. Mild small vessel changes. Mild parenchymal volume loss. No hemosiderin on the susceptibility weighted images. Normal posterior fossa. Normal vascular flow voids at the skull base. No extra- axial fluid collections. No evidence of mass or mass effect. Paranasal sinuses and mastoid air cells are well aerated. Normal optic chiasm and pituitary infundibulum. Mild symmetric atrophy temporal lobes and hippocampal formations. MR/MR head wo con* [id number] IMPRESSION: 1. Tiny focus partially restricted diffusion in the LEFT frontal parietal junc tion with a tiny amount of increased T2 signal compatible with acute to subacut e ischemia. This measures approximately 3 mm. Trace associated edema 2. No other foci of restricted diffusion. 3. Mild small vessel changes with mild parenchymal volume loss stable since . 4. No hemosiderin. 5. No other acute findings.
--- NOTE | 2025-05-03 16:30 | USCV_ITS ---
Geovanna Gabrielle Age: 75 Gender: F : 1950 Exam Date: 05/03/2025 14:37 Ordering Phys: Lindy Bell MD Technologist: [employer] Exam Location: [facility] – [place], [place] Indication: TIA Risk Factors: Previous Vascular Surgery: Right Brachial BP: / Left Brachial BP: / Right Left Velocity (cm/s) Spectral Plaque Velocity (cm/s) Spectral Plaque Syst/Diast Broadening Syst/Diast Broadening 81.50/ 16.70 Prox CCA 70.70 / 15.80 71.10/ 15.40 Mid CCA 73.00 / 15.80 55.90/ 15.00 Distal CCA 67.40 / 18.10 45.60/ 11.50 Prox ICA 41.10 / 12.50 38.10/ 10.80 Mid ICA 60.40 / 19.40 37.40/ 14.20 Distal ICA 43.40 / 16.80 88.50 ECA 63.70 0.80 ICA/CCA 0.90 Antegrade Vertebral Antegrade 22.90/ 6.40 cm/s 18.70/ 5.30 cm/s Bi Subclavian Bi 41.20 89.10 CONCLUSIONS Right ICA stenosis <50%. Mild atheromatous plaque right carotid bulb/ICA. Left ICA stenosis <50%. Mild atheromatous plaque left carotid bulb/ICA. Normal antegrade Doppler flow noted in the right vertebral artery. Normal antegrade Doppler flow noted in the left vertebral artery. Thiago Holm MD (Electronically Signed) Final Date: 03 May 2025 15:23 S
== END 2025-05-03 14:12 | disposition home or self-care (01) ==
LOC: RAD 14:11
PROVIDERS: PCP Family Medicine; Visit Provider Family Medicine
DX: I65.23 Occlusion and stenosis of bilateral carotid arteries (principal); I67.89 Other cerebrovascular disease; G93.89 Other specified disorders of brain; R60.9 Edema, unspecified
CPT/HCPCS: 70551; 93880

== ENCOUNTER → 2025-06-23 09:59 | Outpatient (BNVA) | payer MEDICARE, SELFPAY | PROVIDERS: PCP Family Medicine; Referring Provider Family Medicine; Visit Provider Specialist | DX: I63.512 Cerebral infarction due to unspecified occlusion or stenosis of left middle cerebral artery (principal); I10 Essential (primary) hypertension; E78.5 Hyperlipidemia, unspecified; G47.33 Obstructive sleep apnea (adult) (pediatric); E66.9 Obesity, unspecified | CPT/HCPCS: 36415; 85651; 86140; 86160; 86162; 86235; 86255; 86376; 99205 ==

== ENCOUNTER 2025-07-05 10:18 | Outpatient (CLI) | payer MEDICARE, SELFPAY ==
--- NOTE | 2025-07-05 10:30 | CT_ITS ---
WS: [id number] CTA HEAD AND NECK TECHNIQUE: Contrast enhanced CTA of the head and neck with coronal and sagittal reformatted images and maximum intensity projection (MIP) images. NASCET criteria utilized. CLINICAL INFORMATION: G45.9 - Transient cerebral ischemic attack, unspecified COMPARISON: None. DLP: 1143.[address] scans at [facility] use at least one of these dose optimization techniques: automated exposure control; mA and/or kV adjustment per patient size (includes targeted exams where dose is matched to clinical indication); or iterative reconstruction. FINDINGS: No evidence of intracranial hemorrhage or mass effect. Mild small vessel changes. Mild parenchymal volume loss. Paranasal sinuses and mastoid air cells are well aerated. RIGHT: Less than 50% RIGHT ICA stenosis. Mild calcified atheromatous plaque RIGHT carotid bulb. RIGHT ICA is patent to the skull base. Slight retropharyngeal course of the RIGHT cervical ICA. LEFT: Less than 50% LEFT ICA stenosis. Mild atheromatous plaque. LEFT ICA is patent to the skull base. INTRACRANIAL CTA: No proximal flow-limiting intracranial stenosis. Both ICAs are patent at the skull base. Patent anterior communicating artery. Small RIGHT A1 segment. Normal vascularity to the MYRANDA and MCA territories bilaterally. Codominant and patent vertebral arteries bilaterally. Proximal basilar artery is patent. 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 Mild intracranial atheromatous disease. Small thyroid nodules. CT/CT angio headneck* [id number] IMPRESSION: 1. Less than 50% ICA stenosis bilaterally. Mild calcified atheromatous plaque. 2. No proximal flow-limiting intracranial stenosis. 3. 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 4. Codominant patent vertebral arteries bilaterally.
[2025-07-05] MEDS: iohexol 350 mg/mL 500 mL Btl (per mL) IV (11:59)
== END 2025-07-05 10:19 | disposition home or self-care (01) ==
PROVIDERS: PCP Family Medicine; Visit Provider Specialist
DX: G45.9 Transient cerebral ischemic attack, unspecified (principal); I63.9 Cerebral infarction, unspecified; R07.9 Chest pain, unspecified; I25.84 Coronary atherosclerosis due to calcified coronary lesion; G46.2 Posterior cerebral artery syndrome
CPT/HCPCS: 70496; 70498

== ENCOUNTER 2025-07-26 08:00 | Outpatient (CLI) | payer MEDICARE, SELFPAY | END 2025-07-26 08:01 | disposition home or self-care (01) | LOC: RAD 08:01 | PROVIDERS: PCP Family Medicine; Visit Provider Specialist | DX: I63.9 Cerebral infarction, unspecified (principal); G45.9 Transient cerebral ischemic attack, unspecified; R07.9 Chest pain, unspecified | CPT/HCPCS: C8924 ==

== ENCOUNTER → 2025-07-30 09:27 | Outpatient (BNVA) | payer MEDICARE, SELFPAY | PROVIDERS: PCP Family Medicine; Visit Provider Family Medicine | DX: I10 Essential (primary) hypertension (principal); E78.5 Hyperlipidemia, unspecified | CPT/HCPCS: 80053; 80061 ==

== ENCOUNTER 2025-08-26 13:37 | Outpatient (CLI) | payer MEDICARE, SELFPAY ==
--- NOTE | 2025-08-26 14:40 | MM_ITS ---
WS: [id number] SCREENING DIGITAL BREAST TOMOSYNTHESIS MAMMOGRAM WITH CAD HISTORY: breast cancer screening COMPARISON: 04/18/2022, 09/21/2020 Bilateral CC and MLO with tomosynthesis and synthetic mammography submitted. Computer aided detection analyzed. Breast composition: There are scattered areas of fibroglandular density. There is some very minimal increased soft tissue thickening in the retroareolar region of the LEFT breast. This area of thickening was not present on the prior examination. This may be the nipple seen not completely improve follow-up LEFT ultrasound is recommended at this time. The remaining breasts are negative for interval change. MM/MM scr BI tomosynthesis [id number] IMPRESSION: BI-RADS: 0 - Incomplete: Need additional imaging evaluation. FOLLOW UP: Need Additional Imaging Ultrasound LEFT breast, retroareolar.
== END 2025-08-26 13:38 | disposition home or self-care (01) ==
LOC: RAD 13:39
PROVIDERS: PCP Family Medicine; Visit Provider Family Medicine
DX: Z12.31 Encounter for screening mammogram for malignant neoplasm of breast (principal); R92.323 Mammographic fibroglandular density, bilateral breasts
CPT/HCPCS: 77063; 77067

== ENCOUNTER → 2025-08-31 14:45 | Outpatient (BNVA) | payer MEDICARE, SELFPAY | PROVIDERS: PCP Family Medicine; Referring Provider Family Medicine; Visit Provider Specialist | DX: I63.512 Cerebral infarction due to unspecified occlusion or stenosis of left middle cerebral artery (principal); G45.9 Transient cerebral ischemic attack, unspecified; R07.9 Chest pain, unspecified; I10 Essential (primary) hypertension; E78.5 Hyperlipidemia, unspecified; G47.33 Obstructive sleep apnea (adult) (pediatric); E66.9 Obesity, unspecified | CPT/HCPCS: 99215 ==

== ENCOUNTER 2025-09-03 14:23 | Outpatient (CLI) | payer MEDICARE, SELFPAY ==
--- NOTE | 2025-09-03 14:33 | XR_ITS ---
WS: [id number] SCREENING DEXA SCAN [place] CLINICAL INFORMATION: OSTEOPOROSIS SCREENING COMPARISON: 2021 FINDINGS: The L1-L4 bone mineral density measures 0.967 g/cm2. This corresponds to a T score score of -1.8 and Z score of -1.0. Left femoral neck bone mineral density measures 0.831 g/cm2. This corresponds to a T score of -1.4 and Z score of -0.4. Right femoral neck bone mineral density measures 0.824 g/cm2. This corresponds to a T score -1.5of and Z score of -0.5. Mean femoral neck bone mineral density measures 0.827 g/cm2. This corresponds to a T score of -1.4 and Z score of -0.4. XR/XR DEXA axial skeleton* [id number] IMPRESSION: Osteopenia. Patient's FRAX calculated 10 year probability for major osteoporotic fracture i s 21.6% and osteoporotic hip fracture is 10.7%. Bone density lumbar spine decreased -0.5% Bone density femoral necks increased 2.6%
== END 2025-09-03 14:24 | disposition home or self-care (01) ==
LOC: RAD 14:24
PROVIDERS: PCP Family Medicine; Visit Provider Family Medicine
DX: Z13.820 Encounter for screening for osteoporosis (principal); M81.0 Age-related osteoporosis without current pathological fracture; M85.88 Other specified disorders of bone density and structure, other site
CPT/HCPCS: 77080

== ENCOUNTER 2025-09-07 13:49 | Outpatient (CLI) | payer MEDICARE, SELFPAY ==
--- NOTE | 2025-09-07 14:00 | US_ITS ---
WS: [id number] ULTRASOUND LEFT BREAST, limited HISTORY: BIRAD 0 mammo evaluate LEFT retroareolar breast. COMPARISON: Mammogram 08/26/2025 TECHNIQUE: 2-D and Doppler. Soft tissue thickening posterior to the LEFT nipple is normal by ultrasound. There is no mass or shadowing. No retraction of the nipple. The changes on the recent mammogram were probably due to the nipple not being in profile. US/US breast LT limited* [id number] IMPRESSION: BI-RADS: 2- Benign FOLLOW-UP: 1 Year Follow-up Return to annual screening mammography. No persistent abnormality in the LEFT r etroareolar region.
== END 2025-09-07 13:50 | disposition home or self-care (01) ==
LOC: RAD 13:50
PROVIDERS: PCP Family Medicine; Visit Provider Family Medicine
DX: R92.8 Other abnormal and inconclusive findings on diagnostic imaging of breast (principal)
CPT/HCPCS: 76642

== ENCOUNTER 2025-10-02 13:30 | Emergency (ER) | payer MEDICARE, SELFPAY ==
[2025-10-02 13:47] VITALS: BP 144/73; PULSE 70; RESP 17; TEMP 36.6; O2SAT 95; BMI 35.2
--- NOTE | 2025-10-02 13:59 | ED_ITS ---
HPI - Ear Problem General: Chief complaint: Ear Stated complaint: sevre pain in Right ear Time Seen by Provider: 10/02/25 13:41 History of Present Illness: Patient is a 75-year-old female with history of CAD, CVA, presents to the emergency room with right ear pain. This started last night about midnight. She has worsening pain. This is up the bottom portion of her inside ear where she feels like she has a pain. Denies any other symptoms. She has had history of sinusitis. Maybe runny nose lately. No fevers. No other issues. Associated symptoms: Reports ear or mastoid pain (right) and headache(s); Denies fever(s), neck pain or tinnitus Related Data Home Medications ?Medication ?Instructions ?Recorded ?Confirmed multivitamin with minerals 2 tab PO QAM 05/12/2009/13 (Hair,Skin and Nails tablet) Prevagen 1 tab PO QAM 06/28/23 cholecalciferol (vitamin D3) 125 5,000 unit PO QAM 11/1909/13/25 mcg (5,000 unit) tablet (Vitamin D3) coQ10 (ubiquinol) 200 mg capsule 400 mg PO QAM 3 09/13/25 cyclosporine 0.05 % eye drops 1 drp ophthalmic (eye) . Q 4 hours 07/05/25 09/13/25 (Restasis MultiDose) Previous Rx's ?Medication ?Instructions ?Recorded Sole Supports #1 ea 01/09/24 cpap supplies #1 ea 01/17/24 metoprolol succinate 50 mg See Rx Instructions .Route 03/24/25 tablet,extended release 24 hr .COMPLEX #90 tabs pantoprazole 20 mg tablet,delayed See Rx Instructions .Route 03/24/25 release .COMPLEX #90 tabs evolocumab 140 mg/mL subcutaneous 140 mg SUBCUT Q14D # 2 mL 06/18/25 pen injector (Carlos Pa) clopidogrel 75 mg tablet 75 mg PO DAILY #90 tabs 05/29 05/21 COVID vac 25-26(12up)(Pfi)(PF) 30 0.3 ml IM ONCE #0.3 mL 07/30/25 mcg/0.3 mL IM syringe apixaban 5 mg tablet (Eliquis) 5 mg PO BID #180 tabs 1 10/31/24 bupropion HCl 150 mg 24 hr tablet, See Rx Instructions .Route 09/13/25 extended release .COMPLEX #90 tabs hydrochlorothiazide 25 mg tablet See Rx Instructions . Route 09/13/25 .COMPLEX #90 tabs amoxicillin 875 mg-potassium 1 tab PO Q12H #20 tabs clavulanate 125 mg tablet azelastine 137 mcg (0.1 %) nasal 2 spray intranasal BI D #30 mL 10/02/25 spray fluticasone propionate 50 2 spray intranasal Q12H #16 grams 10/02/25 mcg/actuation nasal spray,suspension gabapentin 300 mg capsule 300 mg PO BEDTIME 1 day #30 caps 10/02/25 methylprednisolone 4 mg tablets in See Rx Instructions PO .COMPLEX 10/02/25 a dose pack (Medrol (Jc)) #21 ea Allergies Allergy/AdvReac Type Severity Reaction Status Date / Time doxycycline Allergy Severe ALGY-Anaphy Verified 09/13/25 08:37 laxis pravastatin Allergy Mild myalgias Verified 09/13/25 08:37 ezetimibe Allergy swelling Verified 09/13/25 08:37 Tetracyclines Allergy ALGY-Swell Verified 09/13/25 08:37 Lip/Tongue/Throat Review of Systems Const: Reports: fatigue; Denies: fever(s) or change in weight Eyes: Reports: change in vision, blurry vision and eye discomfort; Denies: blind spots, photophobia or seeing flashes ENMT: Reports: ear or mastoid pain (right); Denies: odynophagia, hoarseness, change in hearing, tinnitus, sinus pain or other (loss of taste/smell) Card: Denies: chest pain, palpitations, syncope or other (Calf cramp) Resp: Denies: dyspnea, non-productive cough, wheezing or hemoptysis GI: Denies: abdominal pain, nausea, heartburn, constipation or hematochezia : Denies: urinary frequency or urinary incontinence Musc: Denies: neck pain, muscle weakness or other (muscle pain) Skin/Breast: Denies: rash, new lesions or breast mass Neuro: Reports: headache(s), difficulty walking and other (sleep apnea); Denies: numbness in extremities, weakness in extremities, sensory changes, Slurred speech present or seizure-like activity Psych: Reports: difficulty concentrating; Denies: depression, irritability, memory loss or other (personality changes) Endo: Denies: polyuria, polydipsia, excessive sweating or change in body appearance Khris/Lymph: Denies: easy bruising, easy bleeding or enlarged lymph nodes PFSH ED PFSH: Medical History (Updated 10/02/25 @ 14:05 by ALEXANDRA Joseph) Obesity Chronic GERD Mediastinal mass High risk for hip fracture Osteopenia Anxiety and depression Urinary incontinence Benign essential HTN Dyslipidemia Bilateral foot pain Hiatal hernia Surgical History Status post implantation of urinary electronic stimulator device History of sleeve gastrectomy History of cholecystectomy History of hysterectomy History of bilateral carpal tunnel release History of tonsillectomy and adenoidectomy Family History Mother Cancer skin cancer Other Bipolar disorder CAD (coronary artery disease) Family history of thyroid problem Hypertension Osteoarthritis Denies family history of Anesthesia complication Bleeding disorder Social History Smoking and tobacco/nicotine status: never used tobacco/nicotine Alcohol intake: never Substance/Drug Use: never Lives independently: Yes Marital status: / Current occupational status: retired Physical Exam Const: COMMON NORMALS: no acute distress, average body habitus, patient oriented x3, no limitations, healthy appearing, alert and well nourished HENMT: COMMON NORMALS: normocephalic, atraumatic, hearing grossly normal bilaterally, external ears normal, EAC's normal, TM's normal bilaterally, Normal external nose present, Normal nasal mucous membranes and turbinates present, moist oral mucous membranes, oropharynx normal, dentition normal and gingiva normal HEAD & SCALP: normocephalic and atraumatic FACE & SINUS: abnormal transillumination of sinuses on the right maxillary NOSE: Normal external nose present and Normal nasal mucous membranes and turbinates present EXTERNAL EAR: Yes external ears normal EXTERNAL AUDITORY CANAL: EAC's normal TYMPANIC MEMBRANE: TM's normal bilaterally Chest: COMMONS NORMALS: normal inspection of the chest and normal palpation of entire chest wall Resp: COMMON NORMALS: normal respiratory effort, No retractions, No use of accessory muscles and clear to auscultation bilaterally AUSCULTATION: clear to auscultation bilaterally Cardio: COMMON NORMALS: regular rate, regular rhythm and Peripheral pulses 2+ throughout RATE: regular rate RHYTHM: regular rhythm PERIPHERAL PULSES: Peripheral pulses 2+ throughout GI: COMMON NORMALS: Normal to inspection, nondistended, normoactive bowel sounds present, Soft to palpation, non-tender and No hepatosplenomegaly present PALPATION: Yes Soft to palpation and Yes No hepatosplenomegaly present Neuro: COMMON NORMALS: patient oriented x3 SENSORIUM/ORIENTATION: Yes alert Course Vital Signs: Vital signs: Vital Signs Temperature 97.8 F 10/02/25 13:47 Pulse Rate 67 10/02/25 14:19 Respiratory Rate 17 10/02/25 13:47 Blood Pressure 141/82 10/02/25 14:19 Pulse Oximetry 98 10/02/25 14:19 Oxygen Delivery Me thod Room Air 10/02/25 13:47 MDM - Ear Medical Decision Making Patient has negative physical examination other than right maxillary sinus will not illuminate. This could be underlying issue with sinusitis. Will treat her right ear pain with gabapentin for peripheral nerve spasming, warm compresses, Astepro nasal spray on the right side, and Flonase/fluticasone on the right side. All of this explained to patient. She will also be treated with Augmentin for sinusitis. She will follow-up with primary care next week. Medical Records I reviewed the patient's medical records. No radiology studies performed this visit Discharge Plan Discharge Patient Disposition: Home Clinical Impression: Sinusitis, acute maxillary Qualifiers: Recurrence: non-recurrent Qualified Code(s): J01.00 - Acute maxillary sinusitis, unspecified Condition: Stable Prescriptions: New methylprednisolone [Medrol (Jc)] 4 mg tablets,dose pack See Rx Instructions .ROUTE .COMPLEX Qty: 21 0RF Rx Instructions: for 6 days amoxicillin-pot clavulanate 875-125 mg tablet 1 tab PO Q12H Qty: 20 0RF azelastine 137 mcg (0.1 %) spray,non-aerosol 2 spray intranasal BID Qty: 30 0RF Rx Instructions: administer into each nostril fluticasone propionate 50 mcg/actuation spray,suspension 2 spray intranasal Q12H Qty: 16 0RF Rx Instructions: administer into each nostril gabapentin 300 mg capsule 300 mg PO BEDTIME 1 Days Qty: 30 0RF No Action multivitamin with minerals [Hair,Skin and Nails] Tablet 2 tab PO QAM Eliquis 5 mg tablet 5 mg PO BID Qty: 180 3RF Restasis MultiDose 0.05 % drops 1 drp ophthalmic (eye) .Q 4 hours hydrochlorothiazide 25 mg tablet See Rx Instructions .ROUTE .COMPLEX Qty: 90 1RF Dose Instruction: Take 1 tablet by mouth once daily Rx Instructions: Take 1 tablet by mouth once daily (DME) Sole Supports See Rx Instructions .Route .MEDSUPPLY Qty: 1 0RF Rx Instructions: As directed metoprolol succinate 50 mg tablet extended release 24 hr See Rx Instructions .ROUTE .COMPLEX Qty: 90 1RF Dose Instruction: Take 1 tablet by mouth once daily Rx Instructions: Take 1 tablet by mouth once daily pantoprazole 20 mg tablet,delayed release (DR/EC) See Rx Instructions .ROUTE .COMPLEX Qty: 90 1RF Dose Instruction: Take 1 tablet by mouth once daily Rx Instructions: Take 1 tablet by mouth once daily COVID vac 25-26(12up)(Pfi)(PF) 30 mcg/0.3 mL syringe 0.3 ml IM ONCE Qty: 0.3 0RF clopidogrel 75 mg tablet 75 mg PO DAILY Qty: 90 3RF (DME) cpap supplies See Rx Instructions .Route .MEDSUPPLY Qty: 1 0RF Rx Instructions: As directed Repatha SureClick 140 mg/mL pen injector 140 mg SUBCUT Q14D Qty: 2 5RF bupropion HCl 150 mg tablet extended release 24 hr See Rx Instructions .ROUTE .COMPLEX Qty: 90 0RF Dose Instruction: TAKE 1 TABLET BY MOUTH IN THE MORNING Rx Instructions: TAKE 1 TABLET BY MOUTH IN THE MORNING Vitamin D3 125 mcg (5,000 unit) Tablet 5,000 unit PO QAM coQ10 (ubiquinol) 200 mg Capsule 400 mg PO QAM Prevagen 1 tab PO QAM Discharge Orders: Discharge ED (Routine); Ordered 10/02/25 Ordered By: Tracy Egan Referrals: Lindy Bell MD [Primary Care Provider, Family Practice] Patient Instructions: Earache (ED), Opioid Safety, Pain Management, Patient Portal & Samantha Instructions, Sinusitis - Acute Activity Restrictions/Additional Instructions: - Warm compresses to right ear - Hydrocodone for home: Take 1/2-1 every 8 hours as needed for right ear pain. You were given #2 here - Astelin, spray in your right nare, towards the ear canal. Do this 2 sprays twice a day. This was able to be called in - Flonase/fluticasone, spray into right nare towards her ear canal. Do this 2 sprays twice a day. This was able to be called in - Additionally at the pharmacy: Augmentin, powerful antibiotic you take twice daily. Make sure you take with food. GI upset is a side effect if you do not eat. Make sure you utilize a probiotic or eat daily active culture yogurt to avoid infectious diarrhea. Medrol Dosepak, steroid/anti-inflammatory for your upper respiratory symptoms. Gabapentin: Powerful pain medication for nerve spasming peripherally. This would be over by where you are having that issue. You can take all of the above medication with the current medication you are on. -Return to ED with worsening ear pain, fever greater than 100.4 ?F Thank you for choosing [facility] for your healthcare needs today. You have been screened and evaluated and felt safe for discharge. Health conditions do change or evolve sometimes and as such it is important that you follow up with your Primary Doctor to be re checked, 3-5 days is a general good time frame for follow up. 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
[2025-10-02] MEDS: HYDROcodone-acetaminophen 10-325 mg Tablet 2 TAB PO (14:06)
--- NOTE | 2025-10-02 14:06 | PC.NURSE ---
Sent x2 hydro tabs home with pt
[2025-10-02 14:19] VITALS: BP 141/82; PULSE 67; O2SAT 98
== END 2025-10-02 14:19 | disposition home or self-care (01) ==
PROVIDERS: Emergency Provider Physician Assistant; PCP Family Medicine
DX: J01.00 Acute maxillary sinusitis, unspecified (principal); Z79.01 Long term (current) use of anticoagulants; Z79.02 Long term (current) use of antithrombotics/antiplatelets; E78.5 Hyperlipidemia, unspecified; I10 Essential (primary) hypertension
CPT/HCPCS: 99283; J9999

== ENCOUNTER → 2025-10-13 10:50 | Outpatient (BNVA) | payer MEDICARE, SELFPAY | PROVIDERS: PCP Family Medicine; Visit Provider Family Medicine | DX: E78.5 Hyperlipidemia, unspecified (principal); I48.91 Unspecified atrial fibrillation; Z79.01 Long term (current) use of anticoagulants | CPT/HCPCS: 80053; 80061; 83735; 84443; 85025 ==